=== PATIENT | male | born 1945 | race American Indian/Alaskan Native ===

== ENCOUNTER 2017-05-11 11:00 | Day surgery (SDC) | payer MEDICARE ==
[2017-05-11] MEDS ORDERED: XYLOCAINE MPF 2% ONE (12:00)
--- NOTE | 2017-05-11 12:19 | Anesthesia Consultation ---
Anesthesia Consult and Med Hx Date of service: 05/11/17 - Airway Anesthetic Teeth Evaluation: Good ROM Head & Neck: Adequate Mental/Hyoid Distance: Adequate Mallampati Class: Class II Intubation Access Assessment: Probably Good - Pre-Operative Health Status ASA Pre-Surgery Classification: ASA4 Proposed Anesthetic Plan: MAC - Cardiovascular System Hx Hypertension: Yes - Central Nervous System CVA: Yes (multiple strokes, aphasia) Hx Psychiatric Problems: Yes (Altered mental status with dementia) - Gastrointestinal Hx Gastroesophageal Reflux Disease: Yes (PEG tube in place) - Endocrine Hx Renal Disease: Yes (jose) Hx Non-Insulin Dependent Diabetes: Yes - Hematic Hx Anemia: Yes (BLOOD [place] [id number])
[2017-05-11] MEDS ORDERED: DIPRIVAN 10 MG/ML IV ONE (12:53)
[2017-05-11] MEDS ORDERED: NACL 0.9% 1000 ML 1,000 ML IV SCH (13:00)
--- NOTE | 2017-05-11 14:03 | History and Physical Report ---
HISTORY OF PRESENT ILLNESS: A 71-year-old gentleman with underlying history of diabetes, hypertension, cerebrovascular accident, poor swallowing function who normally receives nutrition through the PEG tube that has not been functioning well. The patient has been sent here for PEG revision. ALLERGIES: He has no known allergies. PHYSICAL EXAMINATION: VITAL SIGNS: His vitals otherwise are stable. NECK: Shows no JVD. LUNGS: Shows reduced breath sounds. CARDIOVASCULAR: Normal. ABDOMEN: Shows a nonfunctioning PEG tube. EXTREMITIES: No pedal edema. NEUROLOGIC: He is alert, but not oriented. ASSESSMENT: Nonfunctioning PEG tube, history of cerebrovascular accident, hypertension, diabetes, adult failure to thrive. PLAN: To do the PEG revision. JOB# [id number] LEIA/VERONICA
[2017-05-11 14:28] VITALS: BP 122/68
--- NOTE | 2017-05-11 15:21 | Post Anesthesia Evaluation ---
- Post Anesthesia Evaluation Patient Participated: Yes Airway Patent: Yes Stable Respiratory Function: Yes Nausea/Vomiting: No Temp > 96.8F: Yes Pain Manageable: Yes Adequeate Hydration: Yes Anesthesia Complications: No Block Receding Appropriately: Not Applicable Patient on Ventilator: No
--- NOTE | 2017-05-11 19:22 | Operative Report ---
PROCEDURE: Esophagogastroduodenoscopy with PEG revision. INDICATIONS: This is a 71-year-old -[place] gentleman with an underlying history of diabetes, hypertension, history of CVA with adult failure to thrive and poor swallowing function. He has a PEG tube that has not been functioning well. EGD was done for PEG revision. Procedure was done. DESCRIPTION OF PROCEDURE: After informed consent with MAC anesthesia instrument was passed to the hypopharynx into the esophagus, which showed normal mucosa. Stomach showed the PEG tube to be in place, but it appeared to be nonfunctioning. Pylorus was patent. Duodenum in the first and second portion appeared normal. Once endoscopic exam was done, the old stoma site was cleaned and draped in standard fashion. The tube was removed by gentle traction. Guidewire was passed through the stoma into the cavity of the stomach. A wire was passed through the hollow of the trocar, which was then caught with the polypectomy snare and brought out through the mouth. This was then tied to the 20-Maori tube, which was then pulled into place. The skin marking was at about 2 cm and the scope was reintroduced and the G-tube was noted to be in good position. There was minimal bleeding from the procedure. No complications associated with the procedure. ASSESSMENT: EGD with PEG revision, removal of the old PEG tube, which was nonfunctioning, history of cardiovascular accident with poor swallowing function and adult failure to thrive. Plan is to resume previous medication and feeding through the tube and to avoid aspirin and aspirin-related products and anticoagulants for 2 days if possible. [facility]# [id number] LEIA/VERONICA
== END 2017-05-11 11:01 | disposition home or self-care (01) ==
LOC: GIO 11:00
DX: K94.23 Gastrostomy malfunction (principal); E11.9 Type 2 diabetes mellitus without complications; I10 Essential (primary) hypertension; F03.90 Unspecified dementia, unspecified severity, without behavioral disturbance, psychotic disturbance, mood disturbance, and anxiety; K21.9 Gastro-esophageal reflux disease without esophagitis; D64.9 Anemia, unspecified; Z86.73 Personal history of transient ischemic attack (TIA), and cerebral infarction without residual deficits
CPT/HCPCS: 43246; J2704; J7030

== ENCOUNTER 2017-06-08 15:32 | Inpatient (IN) | payer MEDICARE ==
[2017-06-08] MEDS ORDERED: NACL 0.9% 500 ML 500 ML IV ONE (15:35)
[2017-06-08 16:11] LABS: Bilirubin,Urine NEG (Negative); Blood,Urine MOD (Negative); Ketones,Urine TR mg/dL (Negative); Leukocyte Esterase,Urine NEG (Negative); Mucus,Urine FEW /HPF; Nitrite,Urine NEG (Negative); Urobilinogen,Urine < 2.0 mg/dL (<2.0)
[2017-06-08] MEDS ORDERED: NACL 0.9% 1000 ML 1,000 ML IV ONE ×2 (16:16→16:56)
--- NOTE | 2017-06-08 16:17 | Emergency Department Report ---
ED Altered Mental Status HPI - General Chief Complaint: Altered Mental Status Stated Complaint: LOC Time Seen by Provider: 06/08/17 15:59 Source: EMS Mode of arrival: Stretcher Limitations: Altered Mental Status - History of Present Illness MD Complaint: altered mental status, decreased responsiveness -: Gradual, days(s) (1) Severity: severe Consistency of Symptoms: constant Context: recent fever Associated Symptoms: fever/chills, weakness - Related Data Home Medications Medication Instructions Recorded Confirmed Last Taken Aspirin [Aspirin TAB] 325 mg PO DAILY 03/10/14 03/10/14 05/10/17 Simvastatin 20 mg PO QHS 03/10/14 03/10/14 05/10/17 amLODIPine [Norvasc] 10 mg PO DAILY 03/10/14 03/10/14 05/10/17 metFORMIN [Glucophage] 500 mg PO BID 03/10/14 03/10/14 05/10/17 Previous Rx's Medication Instructions Recorded Last Taken Type Acetaminophen [Acetaminophen TAB] 650 mg PO Q4H PRN #20 tablet 03/21/14 Unknown Rx Allergies Allergy/AdvReac Type Severity Reaction Status Date / Time No Known Allergies Allergy Unverified 03/10/14 23:36 ED Review of Systems ROS: Stated complaint: LOC Other details as noted in HPI Comment: Unobtainable due to pts medical conditions Constitutional: no symptoms reported ED Past Medical Hx - Past Medical History Hx Hypertension: Yes Hx CVA: Yes Hx Diabetes: Yes Hx Renal Disease: Yes (jose) Additional medical history: metabolic encephalopathy - Surgical History Past Surgical History?: Yes - Social History Smoking Status: Unknown if ever smoked Substance Use Type: None - Medications Home Medications: Home Medications Medication Instructions Recorded Confirmed Last Taken Type Aspirin [Aspirin TAB] 325 mg PO DAILY 03/10/14 03/10/14 05/10/17 History Simvastatin 20 mg PO QHS 03/10/14 03/10/14 05/10/17 History amLODIPine [Norvasc] 10 mg PO DAILY 03/10/14 03/10/14 05/10/17 History metFORMIN [Glucophage] 500 mg PO BID 03/10/14 03/10/14 05/10/17 History Acetaminophen [Acetaminophen TAB] 650 mg PO Q4H PRN #20 tablet 03/21/14 Unknown Rx ED Physical Exam - General Limitations: Altered Mental Status General appearance: in distress - Head Head exam: Present: atraumatic - Eye Eye exam: Present: normal appearance Pupils: Present: normal accommodation - ENT ENT exam: Present: normal exam - Neck Neck exam: Present: normal inspection - Respiratory Respiratory exam: Present: normal lung sounds bilaterally - Cardiovascular Cardiovascular Exam: Present: regular rate - GI/Abdominal GI/Abdominal exam: Present: soft - Skin Skin exam: Present: other (decubiti ulcers,) ED Course Vital Signs 06/08/17 06/08/17 06/08/17 15:29 15:30 15:33 Temperature 99.4 F Pulse Rate 117 H 118 H 111 H Respiratory 22 24 19 Rate Blood Pressure 156/77 O2 Sat by Pulse 97 97 97 Oximetry 06/08/17 06/08/17 06/08/17 15:35 15:37 15:45 Temperature Pulse Rate 118 H 120 H 114 H Respiratory 21 20 21 Rate Blood Pressure 139/74 139/74 149/69 O2 Sat by Pulse 98 98 97 Oximetry 06/08/17 06/08/17 15:52 16:00 Temperature Pulse Rate 112 H Respiratory 20 19 Rate Blood Pressure 143/71 O2 Sat by Pulse 98 87 Oximetry - Reevaluation(s) Reevaluation #1: 06/08/17 17:14 improved - Lab Data Result diagrams: 06/08/17 15:47 06/08/17 15:47 Lab Results 06/08/17 06/08/17 06/08/17 Range/Units 15:40 15:47 15:47 WBC 17.2 H (4.5-11.0) K/mm3 RBC 3.68 (3.65-5.03) M/mm3 Hgb 7.6 L (11.8-15.2) gm/dl Hct 25.7 L (35.5-45.6) % MCV 70 L (84-94) fl MCH 21 L (28-32) pg MCHC 30 L (32-34) % RDW 18.0 H (13.2-15.2) % Plt Count 342 (140-440) K/mm3 Lymph % (Auto) 9.6 L (13.4-35.0) % [place] % (Auto) 10.3 H (0.0-7.3) % Eos % (Auto) 0.0 (0.0-4.3) % Baso % (Auto) 0.5 (0.0-1.8) % Lymph # 1.7 (1.2-5.4) K/mm3 [place] # 1.8 H (0.0-0.8) K/mm3 Eos # 0.0 (0.0-0.4) K/mm3 Baso # 0.1 (0.0-0.1) K/mm3 Seg Neutrophils % 79.6 H (40.0-70.0) % Seg Neutrophils # 13.7 H (1.8-7.7) K/mm3 PT 21.3 H (12.2-14.9) Sec. INR 1.74 H (0.87-1.13) VBG pH (7.320-7.420) Sodium (137-145) mmol/L Potassium (3.6-5.0) mmol/L Chloride (98-107) mmol/L Carbon Dioxide (22-30) mmol/L Anion Gap mmol/L BUN (9-20) mg/dL Creatinine (0.8-1.5) mg/dL Estimated GFR ml/min BUN/Creatinine Ratio % Glucose (75-100) mg/dL POC Glucose 295 H (70-105) Lactic Acid (0.7-2.0) mmol/L Calcium (8.4-10.2) mg/dL Total Bilirubin (0.1-1.2) mg/dL AST (5-40) units/L ALT (7-56) units/L Alkaline Phosphatase (35-129) units/L Total Protein (6.3-8.2) g/dL Albumin (3.9-5) g/dL Albumin/Globulin Ratio % Urine Color (Yellow) Urine Turbidity (Clear) Urine pH (5.0-7.0) Ur Specific [place] (1.003-1.030) Urine Protein (Negative) mg/dL Urine Glucose (UA) (Negative) mg/dL Urine Ketones (Negative) mg/dL Urine Blood (Negative) Urine Nitrite (Negative) Urine Bilirubin (Negative) Urine Urobilinogen (<2.0) mg/dL Ur Leukocyte Esterase (Negative) Urine WBC (Auto) (0.0-6.0) /HPF Urine RBC (Auto) (0.0-6.0) /HPF U Epithel Cells (Auto) (0-13.0) /HPF Urine Mucus /HPF 07/12/17 07/12/17 07/12/17 Range/Units 15:47 15:47 15:47 WBC (4.5-11.0) K/mm3 RBC (3.65-5.03) M/mm3 Hgb (11.8-15.2) gm/dl Hct (35.5-45.6) % MCV (84-94) fl MCH (28-32) pg MCHC (32-34) % RDW (13.2-15.2) % Plt Count (140-440) K/mm3 Lymph % (Auto) (13.4-35.0) % [place] % (Auto) (0.0-7.3) % Eos % (Auto) (0.0-4.3) % Baso % (Auto) (0.0-1.8) % Lymph # (1.2-5.4) K/mm3 [place] # (0.0-0.8) K/mm3 Eos # (0.0-0.4) K/mm3 Baso # (0.0-0.1) K/mm3 Seg Neutrophils % (40.0-70.0) % Seg Neutrophils # (1.8-7.7) K/mm3 PT (12.2-14.9) Sec. INR (0.87-1.13) VBG pH 7.383 (7.320-7.420) Sodium 134 L (137-145) mmol/L Potassium 5.5 H (3.6-5.0) mmol/L Chloride 93.9 L (98-107) mmol/L Carbon Dioxide 21 L (22-30) mmol/L Anion Gap 25 mmol/L BUN 21 H (9-20) mg/dL Creatinine 0.7 L (0.8-1.5) mg/dL Estimated GFR > 60 ml/min BUN/Creatinine Ratio 30.00 % Glucose 253 H (75-100) mg/dL POC Glucose (70-105) Lactic Acid 4.50 H* (0.7-2.0) mmol/L Calcium 8.8 (8.4-10.2) mg/dL Total Bilirubin 0.50 (0.1-1.2) mg/dL AST 50 H (5-40) units/L ALT 15 (7-56) units/L Alkaline Phosphatase 71 (35-129) units/L Total Protein 8.4 H (6.3-8.2) g/dL Albumin 2.8 L (3.9-5) g/dL Albumin/Globulin Ratio 0.5 % Urine Color (Yellow) Urine Turbidity (Clear) Urine pH (5.0-7.0) Ur Specific [place] (1.003-1.030) Urine Protein (Negative) mg/dL Urine Glucose (UA) (Negative) mg/dL Urine Ketones (Negative) mg/dL Urine Blood (Negative) Urine Nitrite (Negative) Urine Bilirubin (Negative) Urine Urobilinogen (<2.0) mg/dL Ur Leukocyte Esterase (Negative) Urine WBC (Auto) (0.0-6.0) /HPF Urine RBC (Auto) (0.0-6.0) /HPF U Epithel Cells (Auto) (0-13.0) /HPF Urine Mucus /HPF // Range/Units 15:52 WBC (4.5-11.0) K/mm3 RBC (3.65-5.03) M/mm3 Hgb (11.8-15.2) gm/dl Hct (35.5-45.6) % MCV (84-94) fl MCH (28-32) pg MCHC (32-34) % RDW (13.2-15.2) % Plt Count (140-440) K/mm3 Lymph % (Auto) (13.4-35.0) % [place] % (Auto) (0.0-7.3) % Eos % (Auto) (0.0-4.3) % Baso % (Auto) (0.0-1.8) % Lymph # (1.2-5.4) K/mm3 [place] # (0.0-0.8) K/mm3 Eos # (0.0-0.4) K/mm3 Baso # (0.0-0.1) K/mm3 Seg Neutrophils % (40.0-70.0) % Seg Neutrophils # (1.8-7.7) K/mm3 PT (12.2-14.9) Sec. INR (0.87-1.13) VBG pH (7.320-7.420) Sodium (137-145) mmol/L Potassium (3.6-5.0) mmol/L Chloride (98-107) mmol/L Carbon Dioxide (22-30) mmol/L Anion Gap mmol/L BUN (9-20) mg/dL Creatinine (0.8-1.5) mg/dL Estimated GFR ml/min BUN/Creatinine Ratio % Glucose (75-100) mg/dL POC Glucose (70-105) Lactic Acid (0.7-2.0) mmol/L Calcium (8.4-10.2) mg/dL Total Bilirubin (0.1-1.2) mg/dL AST (5-40) units/L ALT (7-56) units/L Alkaline Phosphatase (35-129) units/L Total Protein (6.3-8.2) g/dL Albumin (3.9-5) g/dL Albumin/Globulin Ratio % Urine Color Yellow (Yellow) Urine Turbidity Clear (Clear) Urine pH 5.0 (5.0-7.0) Ur Specific [place] 1.014 (1.003-1.030) Urine Protein 100 mg/dl (Negative) mg/dL Urine Glucose (UA) 150 (Negative) mg/dL Urine Ketones Tr (Negative) mg/dL Urine Blood Mod (Negative) Urine Nitrite Neg (Negative) Urine Bilirubin Neg (Negative) Urine Urobilinogen < 2.0 (<2.0) mg/dL Ur Leukocyte Esterase Neg (Negative) Urine WBC (Auto) 3.0 (0.0-6.0) /HPF Urine RBC (Auto) 19.0 (0.0-6.0) /HPF U Epithel Cells (Auto) < 1.0 (0-13.0) /HPF Urine Mucus Few /HPF - EKG Data EKG shows normal: sinus rhythm Rate: normal Critical care time in (mins) excluding proc time.: 50 Critical care attestation.: If time is entered above; I have spent that time in minutes in the direct care of this critically ill patient, excluding procedure time. 50 Critical Care Time: 50 ED Disposition Clinical Impression: Acidosis, Dehydration Sepsis Qualifiers: Sepsis type: sepsis due to unspecified organism Qualified Code(s): A41.9 - Sepsis, unspecified organism Disposition: OP ADMIT IP TO THIS HOSP Is pt being admited?: Yes Does the pt Need Aspirin: No Condition: Undetermined Referrals: PRIMARY CARE, [Primary Care Provider] - 3-5 Days
[2017-06-08 16:27] LABS: Albumin 2.8 g/dL (3.9-5); Albumin/Globulin Ratio 0.5 %; Alkaline Phosphatase 71 units/L (35-129); Blood Urea Nitrogen 21 mg/dL (9-20); Calcium 8.8 mg/dL (8.4-10.2); Carbon Dioxide 21 mmol/L (22-30); Chloride 93.9 mmol/L (98-107); Glucose 253 mg/dL (75-100); Sodium 134 mmol/L (137-145); Total Protein 8.4 g/dL (6.3-8.2)
[2017-06-08] MEDS ORDERED: ZOSYN/NS 4.5GM/100ML 4.5 GM/100 ML VIAL IV ONE (16:28)
[2017-06-08 16:32] LABS: Alanine Aminotransferase 15 units/L (7-56); Anion Gap 25 mmol/L; Basophils % (Auto) 0.5 % (0.0-1.8); Hematocrit 25.7 % (35.5-45.6); Hemoglobin 7.6 gm/dl (11.8-15.2); Mean Corpuscular HGB Conc 30 % (32-34); Platelet Count 342 K/mm3 (140-440); Potassium 5.5 mmol/L (3.6-5.0); Red Blood Count 3.68 M/mm3 (3.65-5.03); White Blood Count 17.2 K/mm3 (4.5-11.0)
[2017-06-08 16:34] LABS: Mean Corpuscular Hemoglobin 21 pg (28-32); Mean Corpuscular Volume 70 fl (84-94)
[2017-06-08 16:43] LABS: INR 1.74 (0.87-1.13)
--- NOTE | 2017-06-08 17:35 | Cat Scan Report ---
FINAL REPORT PROCEDURE: CT HEAD/BRAIN WO CON TECHNIQUE: Computerized tomography of the head was performed without contrast material. HISTORY: ams COMPARISON: No prior studies are available for comparison. FINDINGS: Skull and scalp: Possible mild scalp swelling left temporal parietal area Paranasal sinuses: Fluid and thickening in the right posterior sphenoid. Ventricles and subarachnoid spaces: Moderately enlarged ventricles likely in proportion to volume loss related to diffuse atrophy. Cerebrum: No acute intracranial bleed. There is questionable gyral thickening and indistinct nguyen-white junctions in the right temporal parietal brain asymmetric from left side images 39 through 41 and right frontal brain 30 through 33. These areas may reflect ischemia of indeterminate age. Consider MRI to further evaluate. No prior CT head on file. Cerebellum and brainstem: No evidence of hemorrhage, acute infarction or mass. Vasculature: Heavily calcified atherosclerosis with dominant left vertebral artery with moderate stenosis suspected.. Findings suggest increased risk for possible vertebrobasilar insufficiency. CTA head neck may be useful to evaluate that potential if warranted. Comments: Moderate diffuse atrophy with moderate to severe low attenuation pattern in the deep white matter consistent with severe chronic periventricular microischemic change with central lacunar infarct disease. Focal encephalomalacic change in the right pontine area appears chronic. IMPRESSION: No acute intracranial bleed. Diffuse chronic periventricular microischemic change and central basal ganglia lacunar infarct disease with focal right pontine encephalomalacia Indeterminate for areas of acute ischemia in the right temporal parietal brain and right frontal brain as described. No prior CT head on file for correlation Followup MRI with [facility] is advised if not contraindicated
--- NOTE | 2017-06-08 23:54 | History and Physical Report ---
History of Present Illness Date of examination: 06/08/17 Date of admission: 06/08/17 16:57 Chief complaint: Altered mental status for 1 vday History of present illness: DOUGLAS:Patient was sent from PMD's office for multiple wounds to sacral region and feet and decreased responsiveness.Patient has been running fever sec to Sacral wounds.ALso altered sensorium.NO family member available to give further information.In summary patient has fever decub ulcers and altered sens - Past Medical History Hx Hypertension: Yes Hx CVA: Yes Hx Diabetes: Yes Hx Renal Disease: Yes (jose) Additional medical history: metabolic encephalopathy - Surgical History Past Surgical History?: J tube - Social History Smoking Status: Unknown if ever smoked Substance Use Type: None - Medications Home Medications: Home Medications Medication Instructions Recorded Confirmed Last Taken Type Aspirin [Aspirin TAB] 325 mg PO DAILY 03/10/14 03/10/14 05/10/17 History Simvastatin 20 mg PO QHS 03/10/14 03/10/14 05/10/17 History amLODIPine [Norvasc] 10 mg PO DAILY 03/10/14 03/10/14 05/10/17 History metFORMIN [Glucophage] 500 mg PO BID 03/10/14 03/10/14 05/10/17 History Acetaminophen [Acetaminophen TAB] 650 mg PO Q4H PRN #20 tablet 03/21/14 Unknown Rx Allergies Allergy/AdvReac Type Severity Reaction Status Date / Time No Known Allergies Allergy Unverified 03/10/14 23:36 ED Review of Systems ROS: Stated complaint: LOC Other details as noted in HPI Comment: Unobtainable due to pts medical conditions Constitutional: no symptoms reported Medications and Allergies Allergies Allergy/AdvReac Type Severity Reaction Status Date / Time No Known Allergies Allergy Unverified 03/10/14 23:36 Home Medications Medication Instructions Recorded Confirmed Last Taken Type Aspirin [Aspirin TAB] 325 mg PO DAILY 03/10/14 03/10/14 05/10/17 History Simvastatin 20 mg PO QHS 03/10/14 03/10/14 05/10/17 History amLODIPine [Norvasc] 10 mg PO DAILY 03/10/14 03/10/14 05/10/17 History metFORMIN [Glucophage] 500 mg PO BID 03/10/14 03/10/14 05/10/17 History Acetaminophen [Acetaminophen TAB] 650 mg PO Q4H PRN #20 tablet 03/21/14 Unknown Rx Exam - Physical Exam Narrative exam: Lying in bed with decreased responsiveness.Alert to surroundings - Constitutional Vitals: Temp Pulse Resp BP Pulse Ox 98.8 F 130 H 20 170/85 100 06/08/17 21:25 06/08/17 21:25 06/08/17 21:25 06/08/17 21:25 06/08/17 21:25 General appearance: Present: no acute distress, well-nourished - EENT Eyes: Present: PERRL ENT: hearing intact, clear oral mucosa - Neck Neck: Present: supple, normal ROM - Respiratory Respiratory effort: normal Respiratory: bilateral: CTA - Cardiovascular Heart rate: 113 Rhythm: regular Heart Sounds: Present: S1 & S2. Absent: rub, click - Extremities Extremities: pulses symmetrical, No edema Extremity abnormal: ulceration (Both feet and gluteal region) Peripheral Pulses: within normal limits - Abdominal General gastrointestinal: Present: soft, non-tender, non-distended, normal bowel sounds, other (tube in place) Male genitourinary: Present: normal - Integumentary Integumentary: Present: clear, warm, dry - Musculoskeletal Musculoskeletal: gait normal, strength equal bilaterally - Psychiatric Psychiatric: appropriate mood/affect, intact judgment & insight - Neurologic Neurologic: CNII-XII intact, moves all extremities - Allied Health Allied health notes reviewed: case management Results - Labs CBC & Chem 7: 06/08/17 15:47 06/08/17 15:47 Labs: Laboratory Last Values WBC 17.2 K/mm3 (4.5-11.0) H 06/08/17 15:47 RBC 3.68 M/mm3 (3.65-5.03) 06/08/17 15:47 Hgb 7.6 gm/dl (11.8-15.2) L 06/08/17 15:47 Hct 25.7 % (35.5-45.6) L 06/08/17 15:47 MCV 70 fl (84-94) L 06/08/17 15:47 MCH 21 pg (28-32) L 06/08/17 15:47 MCHC 30 % (32-34) L 06/08/17 15:47 RDW 18.0 % (13.2-15.2) H 06/08/17 15:47 Plt Count 342 K/mm3 (140-440) 06/08/17 15:47 Lymph % (Auto) 9.6 % (13.4-35.0) L 06/08/17 15:47 [place] % (Auto) 10.3 % (0.0-7.3) H 06/08/17 15:47 Eos % (Auto) 0.0 % (0.0-4.3) 06/08/17 15:47 Baso % (Auto) 0.5 % (0.0-1.8) 06/08/17 15:47 Lymph # 1.7 K/mm3 (1.2-5.4) 06/08/17 15:47 [place] # 1.8 K/mm3 (0.0-0.8) H 06/08/17 15:47 Eos # 0.0 K/mm3 (0.0-0.4) 06/08/17 15:47 Baso # 0.1 K/mm3 (0.0-0.1) 06/08/17 15:47 Seg Neutrophils % 79.6 % (40.0-70.0) H 06/08/17 15:47 Seg Neutrophils # 13.7 K/mm3 (1.8-7.7) H 06/08/17 15:47 PT 21.3 Sec. (12.2-14.9) H 06/08/17 15:47 INR 1.74 (0.87-1.13) H 06/08/17 15:47 VBG pH 7.383 (7.320-7.420) 06/08/17 15:47 Sodium 134 mmol/L (137-145) L 06/08/17 15:47 Potassium 5.5 mmol/L (3.6-5.0) H 06/08/17 15:47 Chloride 93.9 mmol/L (98-107) L 06/08/17 15:47 Carbon Dioxide 21 mmol/L (22-30) L 06/08/17 15:47 Anion Gap 25 mmol/L 06/08/17 15:47 BUN 21 mg/dL (9-20) H 06/08/17 15:47 Creatinine 0.7 mg/dL (0.8-1.5) L 06/08/17 15:47 Estimated GFR > 60 ml/min 06/08/17 15:47 BUN/Creatinine Ratio 30.00 % 06/08/17 15:47 Glucose 253 mg/dL (75-100) H 06/08/17 15:47 POC Glucose 295 (70-105) H 06/08/17 15:40 Lactic Acid 4.60 mmol/L (0.7-2.0) H* 06/08/17 18:33 Calcium 8.8 mg/dL (8.4-10.2) 06/08/17 15:47 Total Bilirubin 0.50 mg/dL (0.1-1.2) 06/08/17 15:47 AST 50 units/L (5-40) H 06/08/17 15:47 ALT 15 units/L (7-56) 06/08/17 15:47 Alkaline Phosphatase 71 units/L (35-129) 06/08/17 15:47 Total Protein 8.4 g/dL (6.3-8.2) H 06/08/17 15:47 Albumin 2.8 g/dL (3.9-5) L 06/08/17 15:47 Albumin/Globulin Ratio 0.5 % 06/08/17 15:47 Urine Color Yellow (Yellow) 06/08/17 15:52 Urine Turbidity Clear (Clear) 06/08/17 15:52 Urine pH 5.0 (5.0-7.0) 06/08/17 15:52 Ur Specific [place] 1.014 (1.003-1.030) 06/08/17 15:52 Urine Protein 100 mg/dl mg/dL (Negative) 06/08/17 15:52 Urine Glucose (UA) 150 mg/dL (Negative) 06/08/17 15:52 Urine Ketones Tr mg/dL (Negative) 06/08/17 15:52 Urine Blood Mod (Negative) 06/08/17 15:52 Urine Nitrite Neg (Negative) 06/08/17 15:52 Urine Bilirubin Neg (Negative) 06/08/17 15:52 Urine Urobilinogen < 2.0 mg/dL (<2.0) 06/08/17 15:52 Ur Leukocyte Esterase Neg (Negative) 06/08/17 15:52 Urine WBC (Auto) 3.0 /HPF (0.0-6.0) 06/08/17 15:52 Urine RBC (Auto) 19.0 /HPF (0.0-6.0) 06/08/17 15:52 U Epithel Cells (Auto) < 1.0 /HPF (0-13.0) 06/08/17 15:52 Urine Mucus Few /HPF 06/08/17 15:52 Assessment and Plan Advance Directives: Yes (Full code) VTE prophylaxis?: Chemical Plan of care discussed with patient/family: No - Patient Problems (1) Sepsis Current Visit: Yes Status: Acute Qualifiers: Sepsis type: sepsis due to unspecified organism Qualified Code(s): A41.9 - Sepsis, unspecified organism Plan to address problem: Sec to decub ulcers.Started on Vancomycin and Zosyn pending Blood cultures and wound cultures.Lactic acid high. (2) Toxic metabolic encephalopathy Current Visit: Yes Status: Acute Plan to address problem: Sec to sepsis old CVA and multifactorial.Also metabolic acidosis. (3) Acidosis, metabolic Current Visit: No Status: Acute Plan to address problem: Iv fluids and Iv abx (4) Hyperkalemia Current Visit: Yes Status: Acute Plan to address problem: Nahco3 and calcium gluconate given.Recheck K level (5) CVA, old, cognitive deficits Current Visit: No Status: Chronic (6) Malnutrition Current Visit: Yes Status: Acute Plan to address problem: Dietitian consult requested for supplements and Tube feeding orders (7) T2DM (type 2 diabetes mellitus) Current Visit: Yes Status: Chronic Qualifiers: Diabetes mellitus complication status: with neurologic complications Diabetes mellitus complication detail: D Diabetic retinopathy severity: D Proliferative retinopathy type: P Diabetes mellitus macular edema: D Diabetes mellitus mcc insulin use: D Laterality: L Chronic kidney disease stage: C Plan to address problem: Coverage and check A1c.Metfotmin stopped b/c of Lactic Acidosis. (8) T2DM (type 2 diabetes mellitus) Current Visit: Yes Status: Acute Qualifiers: Diabetes mellitus complication status: D Diabetes mellitus complication detail: D Diabetic retinopathy severity: D Proliferative retinopathy type: P Diabetes mellitus macular edema: D Diabetes mellitus oracle endeca consultant insulin use : D Laterality: L Chronic kidney disease stage: C (9) HLD (hyperlipidemia) Current Visit: Yes Status: Chronic Qualifiers: Hyperlipidemia type: mixed hyperlipidemia Qualified Code(s): E78.2 - Mixed hyperlipidemia Plan to address problem: Statins held for the time being. (10) DVT prophylaxis Current Visit: No Status: Acute Plan to address problem: On Lovenox
[2017-06-09] MEDS ORDERED: DULCOLAX PR PRN (00:03)
[2017-06-09] MEDS ORDERED: MILK OF MAGNESIA PO PRN (00:03)
[2017-06-09] MEDS ORDERED: ZOFRAN IV PRN (00:03)
[2017-06-09] MEDS: D5/0.45NS 1,000 ML IV SCH (03:24)
[2017-06-09] MEDS: ZOSYN/NS 4.5GM/100ML 4.5 GM/100 ML VIAL IV SCH ×3 (03:24→17:27)
[2017-06-09] MEDS ORDERED: CALCIUM GLUCONATE 1,000 MG in NACL 0.9% 100 ML IV ONE (05:39)
[2017-06-09] MEDS: TYLENOL PR PRN (05:40)
[2017-06-09] MEDS ORDERED: SODIUM BICARBONATE IV ONE (05:45)
[2017-06-09] MEDS ORDERED: VANCOMYCIN 1,250 MG in NACL 0.9% 250ML 250 ML IV ONE (06:00)
[2017-06-09] MEDS ORDERED: SODIUM BICARBONATE 50 MEQ in NACL 0.9% 1000 ML 1,000 ML IV SCH (06:00)
[2017-06-09] MEDS ORDERED: VANCOMYCIN PHARMACY TO DOSE IV SCH (06:00)
[2017-06-09 06:50] LABS: Anion Gap 20 mmol/L; BUN/Creatinine Ratio 22.85; Blood Urea Nitrogen 16 mg/dL (9-20); Calcium 8.1 mg/dL (8.4-10.2); Carbon Dioxide 22 mmol/L (22-30); Chloride 100.2 mmol/L (98-107); Glucose 226 mg/dL (75-100); Potassium 3.4 mmol/L (3.6-5.0); Sodium 139 mmol/L (137-145)
[2017-06-09 06:53] LABS: Total Iron Binding Capacity 141.4 mcg/dL (250-450)
--- NOTE | 2017-06-09 08:01 | XRay Report ---
AP CHEST: HISTORY: Sepsis AP view of the chest demonstrates a normal mediastinal and cardiac contour with clear lungs and normal bony and soft tissue structures. IMPRESSION: Unremarkable AP chest.
[2017-06-09] MEDS: PEPCID IV SCH ×2 (12:02→23:14)
[2017-06-09] MEDS: NORVASC PO SCH (12:05)
--- NOTE | 2017-06-09 14:55 | Admit Criteria Form ---
Admission Criteria Documentation: SEPSIS and OTHER FEBRILE ILLNESS, W/O FOCAL INFECTION Clinical Indications for Admission to Inpatient Care ( Place 'X' for any and all applicable criteria): Admission is indicated for ANY ONE of the following (1)(2)(3)(4): [ ] I. Bacteremia [ ]II. Suspected or identified specific infection requiring hospitalization (eg, meningitis, endocarditis) [ ]III. Hemodynamic instability [ ]IV. Altered mental status [ ]V. Failure or unavailability of outpatient antimicrobial treatment [ ]. Hypoxemia [ ]VII. Seizures [ ]VIII. High-risk febrile neutropenia [ ]IX. Need for parenteral antibiotic in patient who is likely to abuse vascular access device (eg, injection drug user) [A](7) [ ]X. Temperature greater than 104.9 degrees F (40.5 degrees C) (oral) [ X]XI. Inpatient admission required rather than observation care because of ANY ONE of the following: [ ]1) Specific infection identified that is too severe for outpatient treatment or observation care trial [ X]2) Metabolic disorder (eg, hypoglycemia, hyperglycemia, metabolic acidosis) that is severe or persistent [ ]3) Temperature greater than 103.1 degrees F (39.5 degrees C) ( oral) that is not responsive to observation care treatment [ ]4) IV fluid to replace significant ongoing (eg, for over 24 hours) losses (> 3 L/m2 per day) [ ]5) Supplemental oxygen or respiratory treatments for over 24 hours that is performable only in acute inpatient setting [ ]6) Parenteral nutrition regimen need that must be implemented on inpatient basis [ ]7) Strict or protective (eg, laminar flow) isolation [ ]8) Other condition, treatment or monitoring requiring inpatient admission Extended stay beyond goal length of stay may be needed for(1)(3) [ ]a) Sepsis or septic shock(22) [ ]b) Positive blood cultures [ ]c) Insufficient oral intake [ ]d) High-risk febrile neutropenia(29)(30) [ ]e) Continued fever and clinical instability [ ]f) Clinically active comorbid illness (e.g,heart failure, renal failure , diabetes) The original [facility] [employer] content created by Peewee Garcia has been revised. The portions of the content which have been revised are identified through the use of italic text or in bold, and Peewee Garcia has neither reviewed nor approved the modified material. All other unmodified content is copyright [facility]. Please see references footnoted in the original [facility] edition 2016 Admission Criteria Met: Yes
--- NOTE | 2017-06-09 16:40 | Anesthesia Day of Surgery ---
Anesthesia Day of Surgery - Day of Surgery Patient Examined: Yes Patient H&P Reviewed: Yes Patient is NPO: Yes
--- NOTE | 2017-06-09 16:40 | Anesthesia Consultation ---
Anesthesia Consult and Med Hx Date of service: 06/09/17 - Airway Intubation Access Assessment: Probably Good - Pulmonary Exam CTA: Yes - Cardiac Exam Cardiac Exam: RRR - Pre-Operative Health Status ASA Pre-Surgery Classification: ASA4 Proposed Anesthetic Plan: General - Cardiovascular System Hx Hypertension: Yes - Central Nervous System CVA: Yes (multiple strokes, aphasia) Hx Psychiatric Problems: Yes (Altered mental status with dementia) - Gastrointestinal Hx Gastroesophageal Reflux Disease: Yes (PEG tube in place) - Endocrine Hx Renal Disease: Yes (jose) Hx Non-Insulin Dependent Diabetes: Yes - Hematic Hx Anemia: Yes (BLOOD [place] [id number])
--- NOTE | 2017-06-09 16:41 | History and Physical Report ---
History of Present Illness Date of examination: 06/09/17 Date of admission: 06/08/17 16:57 Chief complaint: Left heel pressure ulcer History of present illness: 71 yo male, s/p CVA with pressure ulcers of the right heel and right hip. Consulted re: wound management Past History Past Medical History: diabetes, hypertension, hyperlipidemia, stroke Family history: no significant family history Medications and Allergies Allergies Allergy/AdvReac Type Severity Reaction Status Date / Time No Known Allergies Allergy Unverified 03/10/14 23:36 Home Medications Medication Instructions Recorded Confirmed Last Taken Type Aspirin [Aspirin TAB] 325 mg PO DAILY 03/10/14 06/09/17 2 Days Ago History Simvastatin 20 mg PO QHS 03/10/14 06/09/17 2 Days Ago History amLODIPine [Norvasc] 10 mg PO DAILY 03/10/14 06/09/17 2 Days Ago History metFORMIN [Glucophage] 500 mg PO BID 03/10/14 06/09/17 2 Days Ago History Acetaminophen [Acetaminophen TAB] 650 mg PO Q4H PRN #20 tablet 03/21/14 3 Days Ago Rx Active Meds: Active Medications Acetaminophen (Tylenol) 650 mg LA Q4H PRN PRN Reason: Pain MILD(1-3)/Fever >100.5/MONGE Last Admin: 06/09/17 05:40 Dose: 650 mg Amlodipine Besylate (Norvasc) 10 mg PO DAILY [facility] Last Admin: 06/09/17 12:05 Dose: Not Given Bisacodyl (Dulcolax) 10 mg LA QDAY PRN PRN Reason: Constipation unrelieved by MOM Famotidine (Pepcid) 20 mg IV BID [facility] Last Admin: 06/09/17 12:02 Dose: 20 mg Hydromorphone HCl (Dilaudid) 0.5 mg IV Q3H PRN PRN Reason: Pain , Severe (7-10) Dextrose/Sodium Chloride (D5/0.45ns) 1,000 mls @ 75 mls/hr IV DIRECT [facility] Last Admin: 06/09/17 03:24 Dose: 75 mls/hr Piperacillin Sod/Tazobactam Sod (Zosyn/Ns 4.5gm/100ml) 4.5 gm in 100 mls @ 200 mls/hr IV Q8H [facility] PRN Reason: Protocol Last Admin: 06/09/17 12:04 Dose: 200 mls/hr Vancomycin HCl (Vancomycin/Ns 1 Gm/250 Ml) 1 gm in 250 mls @ 166.667 mls/hr IV Q12H [facility] Insulin Human Regular (Novolin R) 0 units SUB-Q Q6HR [facility] PRN Reason: Protocol Last Admin: 06/09/17 06:30 Dose: 4 units Magnesium Hydroxide (Milk Of Magnesia) 30 ml PO Q4H PRN PRN Reason: Constipation Ondansetron HCl (Zofran) 4 mg IV Q8H PRN PRN Reason: N/V unrelieved by Reglan Vancomycin HCl (Vancomycin Pharmacy To Dose) 1 each IV PKCONSULT ROSA PRN Reason: Protocol Review of Systems All systems: negative (none.) Exam Vital Signs Pulse Resp Pulse Ox 117 H 22 97 06/08/17 15:29 06/08/17 15:29 06/08/17 15:29 - General physical appearance Positive: no distress (Lying on side with right side up. Non-communicative.) - Eyes Positive: PERRL, normal occular movement - ENT Positive: normal pinna, normal nares, normal mucosa, no congestion - Neck Positive: no masses - Respiratory Positive: clear to auscultation - Cardiovascular Rhythm: regular Heart Sounds: Present: S1 & S2 - Abdomen Abdomen: Present: soft, bowel sounds normal Hernia: none - Integumentary other (There is a 2.5 cm right lateral hip ulceration extending at least to the SQ tissue with some undermining. There is a large, black eschar of the right heel with underlying fluctuance. There are also two 1.5 cm ulcers along the right lateral foot.) - Neurologic Neurologic: other (Non-communicative; moans occasionally.) Results - Labs 06/08/17 15:47 06/09/17 05:54 Abnormal lab results 06/08/17 06/09/17 06/09/17 Range/Units 18:33 05:54 05:54 Potassium 3.4 L D (3.6-5.0) mmol/L Creatinine 0.7 L (0.8-1.5) mg/dL Glucose 226 H (75-100) mg/dL POC Glucose (70-105) Lactic Acid 4.60 H* (0.7-2.0) mmol/L Calcium 8.1 L (8.4-10.2) mg/dL Iron 9 L (49-181) ug/dL TIBC 141.40 L (250-450) mcg/dL Transferrin 101 L (180-329) mg/dl 06/09/17 06/09/17 Range/Units 06:14 12:47 Potassium (3.6-5.0) mmol/L Creatinine (0.8-1.5) mg/dL Glucose (75-100) mg/dL POC Glucose 267 H 153 H (70-105) Lactic Acid (0.7-2.0) mmol/L Calcium (8.4-10.2) mg/dL Iron (49-181) ug/dL TIBC (250-450) mcg/dL Transferrin (180-329) mg/dl Diabetes panel 06/09/17 Range/Units 05:54 Sodium 139 (137-145) mmol/L Potassium 3.4 L D (3.6-5.0) mmol/L Chloride 100.2 (98-107) mmol/L Carbon Dioxide 22 (22-30) mmol/L BUN 16 (9-20) mg/dL Creatinine 0.7 L (0.8-1.5) mg/dL Glucose 226 H (75-100) mg/dL Calcium 8.1 L (8.4-10.2) mg/dL Calcium panel 06/09/17 Range/Units 05:54 Calcium 8.1 L (8.4-10.2) mg/dL Pituitary panel 06/09/17 Range/Units 05:54 Sodium 139 (137-145) mmol/L Potassium 3.4 L D (3.6-5.0) mmol/L Chloride 100.2 (98-107) mmol/L Carbon Dioxide 22 (22-30) mmol/L BUN 16 (9-20) mg/dL Creatinine 0.7 L (0.8-1.5) mg/dL Glucose 226 H (75-100) mg/dL Calcium 8.1 L (8.4-10.2) mg/dL Adrenal panel 06/09/17 Range/Units 05:54 Sodium 139 (137-145) mmol/L Potassium 3.4 L D (3.6-5.0) mmol/L Chloride 100.2 (98-107) mmol/L Carbon Dioxide 22 (22-30) mmol/L BUN 16 (9-20) mg/dL Creatinine 0.7 L (0.8-1.5) mg/dL Glucose 226 H (75-100) mg/dL Calcium 8.1 L (8.4-10.2) mg/dL Assessment and Plan - Patient Problems (1) Pressure ulcer, heel, right, unstageable Current Visit: Yes Status: Acute Plan to address problem: 1) We will take the pt to the OR today for debridement of his right heel, right hip and right foot ulcerations. Verbal informed consent was obtained from the pt's son, Royal. 2) Check arterial dopplers of his RLE as the right heel ulceration likely extends to bone 3) Strict DM control (2) Pressure ulcer, hip, right, unstageable Current Visit: Yes Status: Acute (3) Pressure ulcer of right foot, unstageable Current Visit: Yes Status: Acute
--- NOTE | 2017-06-09 16:55 | Progress Note ---
Assessment and Plan Assessment and plan: Patient [age] male was sent from PMD's office for multiple wounds to sacral region and feet and decreased responsiveness. Patient has been running fever likely sec to Sacral wounds. ALso altered sensorium. NO family member available to give further information.call was placed has not been responded to. Patient was started on empiric antibiotic coverage with consultation to surgery. Imaging studies of the brain did show possible intermediate infarcts with a recommendation for MRI which as been ordered. It is unclear if this is new. Patient does have also evidence of encephalomalacia. (1) Sepsis Sec to decub ulcers.continue Vancomycin and Zosyn pending Blood cultures and wound cultures.Lactic acid high. Repeat has normalized. Patient for surgical debridement. (2) Toxic metabolic encephalopathy Doubts new CVA but will obtain MRI. If continued worsening or evidence of acute events will obtain neurology evaluation and full CVA panel workup. (3) Acidosis, metabolic Continue treatment of underlying issue Iv fluids and Iv abx (4) Hyperkalemia Corrected hypo-kalemia will replace. (5) sacral pressure ulcers Surgical consult place patient for debridement today. Would care consult T (6) CVA, old, cognitive deficits Current Visit: No Status: Chronic Patient nonambulatory, severely debilitated (7) Malnutrition Dietitian consult requested for supplements and Tube feeding orders (8) T2DM (type 2 diabetes mellitus) Coverage with insulin and Accu-Cheks. Patient on D5ns due to nutrition. We'll adjust insulin accordingly. Metfotmin stopped b/c of Lactic Acidosis. (9) complete immobility due to frailty We'll obtain PT and OT evaluation and treat. (10) HLD (hyperlipidemia) we'll resume statins prior to discharge (11) DVT prophylaxis Current Visit: No Status: Acute Plan to address problem: On Lovenox History Interval history: Patient seen and examined this morning in no acute distress should he is severely contracted although answers some questions. No other adverse events reported by nursing staff. Hospitalist Physical - Physical exam Narrative exam: VITAL SIGNS: Reviewed. GENERAL: The patient appeared markedly cachectic severely contracted. Lying on the right side Vital signs as documented. HEAD: No signs of head trauma. EYES: Pupils are equal. Extraocular motions intact. EARS: Hearing grossly intact. MOUTH: Oropharynx is normal. NECK: No adenopathy, no JVD. CHEST: Chest with clear breath sounds bilaterally. No wheezes, rales, or rhonchi. CARDIAC: Regular rate and rhythm. S1 and S2, without murmurs, gallops, or rubs. VASCULAR: No Edema. Peripheral pulses normal and equal in all extremities. ABDOMEN: Soft, without detectable tenderness. No sign of distention. No rebound or guarding, and no masses palpated. Bowel Sounds normal. MUSCULOSKELETAL: Severely contracted. Extremities without clubbing, cyanosis or edema. NEUROLOGIC EXAM: Alert and oriented x 3. No focal sensory or strength deficits. Minimally communicative.. Follows commands. PSYCHIATRIC: Mood normal. SKIN: There is a 2.5 cm right lateral hip ulceration extending at least to the SQ tissue with some undermining. There is a large, black eschar of the right heel with underlying fluctuance, two 1.5 cm ulcers along the right lateral foot. - Constitutional Vitals: Temp Pulse Resp BP Pulse Ox 98.7 F 107 H 18 115/59 99 06/09/17 08:35 06/09/17 14:00 06/09/17 08:35 06/09/17 08:35 06/09/17 08:35 General appearance: Present: no acute distress, well-nourished Results - Labs CBC & Chem 7: 06/08/17 15:47 06/09/17 05:54 Labs: Laboratory Last Values WBC 17.2 K/mm3 (4.5-11.0) H 06/08/17 15:47 RBC 3.68 M/mm3 (3.65-5.03) 06/08/17 15:47 Hgb 7.6 gm/dl (11.8-15.2) L 06/08/17 15:47 Hct 25.7 % (35.5-45.6) L 06/08/17 15:47 MCV 70 fl (84-94) L 06/08/17 15:47 MCH 21 pg (28-32) L 06/08/17 15:47 MCHC 30 % (32-34) L 06/08/17 15:47 RDW 18.0 % (13.2-15.2) H 06/08/17 15:47 Plt Count 342 K/mm3 (140-440) 06/08/17 15:47 Lymph % (Auto) 9.6 % (13.4-35.0) L 06/08/17 15:47 [place] % (Auto) 10.3 % (0.0-7.3) H 06/08/17 15:47 Eos % (Auto) 0.0 % (0.0-4.3) 06/08/17 15:47 Baso % (Auto) 0.5 % (0.0-1.8) 06/08/17 15:47 Lymph # 1.7 K/mm3 (1.2-5.4) 06/08/17 15:47 [place] # 1.8 K/mm3 (0.0-0.8) H 06/08/17 15:47 Eos # 0.0 K/mm3 (0.0-0.4) 06/08/17 15:47 Baso # 0.1 K/mm3 (0.0-0.1) 06/08/17 15:47 Seg Neutrophils % 79.6 % (40.0-70.0) H 06/08/17 15:47 Seg Neutrophils # 13.7 K/mm3 (1.8-7.7) H 06/08/17 15:47 PT 21.3 Sec. (12.2-14.9) H 06/08/17 15:47 INR 1.74 (0.87-1.13) H 06/08/17 15:47 VBG pH 7.383 (7.320-7.420) 06/08/17 15:47 Sodium 139 mmol/L (137-145) 06/09/17 05:54 Potassium 3.4 mmol/L (3.6-5.0) L D 06/09/17 05:54 Chloride 100.2 mmol/L (98-107) 06/09/17 05:54 Carbon Dioxide 22 mmol/L (22-30) 06/09/17 05:54 Anion Gap 20 mmol/L 06/09/17 05:54 BUN 16 mg/dL (9-20) 06/09/17 05:54 Creatinine 0.7 mg/dL (0.8-1.5) L 06/09/17 05:54 Estimated GFR > 60 ml/min 06/09/17 05:54 BUN/Creatinine Ratio 22.85 % 06/09/17 05:54 Glucose 226 mg/dL (75-100) H 06/09/17 05:54 POC Glucose 153 (70-105) H 06/09/17 12:47 Lactic Acid 1.30 mmol/L (0.7-2.0) 06/09/17 05:54 Calcium 8.1 mg/dL (8.4-10.2) L 06/09/17 05:54 Iron 9 ug/dL (49-181) L 06/09/17 05:54 TIBC 141.40 mcg/dL (250-450) L 06/09/17 05:54 % Saturation 6.36 % 06/09/17 05:54 Transferrin 101 mg/dl (180-329) L 06/09/17 05:54 Total Bilirubin 0.50 mg/dL (0.1-1.2) 06/08/17 15:47 AST 50 units/L (5-40) H 06/08/17 15:47 ALT 15 units/L (7-56) 06/08/17 15:47 Alkaline Phosphatase 71 units/L (35-129) 06/08/17 15:47 Total Protein 8.4 g/dL (6.3-8.2) H 06/08/17 15:47 Albumin 2.8 g/dL (3.9-5) L 06/08/17 15:47 Albumin/Globulin Ratio 0.5 % 06/08/17 15:47 Vitamin B12 280.5 pg/mL (211-911) 06/09/17 05:54 Urine Color Yellow (Yellow) 06/08/17 15:52 Urine Turbidity Clear (Clear) 06/08/17 15:52 Urine pH 5.0 (5.0-7.0) 06/08/17 15:52 Ur Specific [place] 1.014 (1.003-1.030) 06/08/17 15:52 Urine Protein 100 mg/dl mg/dL (Negative) 06/08/17 15:52 Urine Glucose (UA) 150 mg/dL (Negative) 06/08/17 15:52 Urine Ketones Tr mg/dL (Negative) 06/08/17 15:52 Urine Blood Mod (Negative) 06/08/17 15:52 Urine Nitrite Neg (Negative) 06/08/17 15:52 Urine Bilirubin Neg (Negative) 06/08/17 15:52 Urine Urobilinogen < 2.0 mg/dL (<2.0) 06/08/17 15:52 Ur Leukocyte Esterase Neg (Negative) 06/08/17 15:52 Urine WBC (Auto) 3.0 /HPF (0.0-6.0) 06/08/17 15:52 Urine RBC (Auto) 19.0 /HPF (0.0-6.0) 06/08/17 15:52 U Epithel Cells (Auto) < 1.0 /HPF (0-13.0) 06/08/17 15:52 Urine Mucus Few /HPF 06/08/17 15:52
[2017-06-09] MEDS ORDERED: XYLOCAINE MPF 2% ONE (17:06)
[2017-06-09] MEDS ORDERED: SUBLIMAZE ONE (17:08)
[2017-06-09] MEDS ORDERED: DIPRIVAN 10 MG/ML IV ONE (17:08)
[2017-06-09] MEDS ORDERED: NACL BACTERIOSTATIC INFILTRATI ONE (17:23)
[2017-06-09] MEDS: VANCOMYCIN/NS 1 GM/250 ML 1 GM/250 ML BAG IV SCH ×2 (17:28→18:19)
[2017-06-09] MEDS: NACL 0.9% 1000 ML 1,000 ML IV SCH ×2 (17:35→23:12)
[2017-06-09] MEDS ORDERED: NACL 0.9% 500 ML 500 ML IV ONE (18:40)
[2017-06-10] MEDS: ZOSYN/NS 4.5GM/100ML 4.5 GM/100 ML VIAL IV SCH ×3 (04:48→21:00)
[2017-06-10] MEDS: VANCOMYCIN/NS 1 GM/250 ML 1 GM/250 ML BAG IV SCH ×2 (05:59→18:41)
[2017-06-10 06:31] LABS: Basophils % (Auto) 0.4 % (0.0-1.8); Hemoglobin 10.2 gm/dl (11.8-15.2); Mean Corpuscular HGB Conc 31 % (32-34); Mean Corpuscular Volume 76 fl (84-94); Platelet Count 303 K/mm3 (140-440); Red Blood Count 4.35 M/mm3 (3.65-5.03); White Blood Count 15.9 K/mm3 (4.5-11.0)
[2017-06-10 06:32] LABS: Mean Corpuscular Hemoglobin 23 pg (28-32); Red Cell Distribution Width 21.5 % (13.2-15.2)
[2017-06-10 06:57] LABS: Alanine Aminotransferase 12 units/L (7-56); Albumin 2.4 g/dL (3.9-5); Albumin/Globulin Ratio 0.5 %; Alkaline Phosphatase 67 units/L (35-129); Anion Gap 19 mmol/L; BUN/Creatinine Ratio 17.14; Blood Urea Nitrogen 12 mg/dL (9-20); Calcium 8.6 mg/dL (8.4-10.2); Carbon Dioxide 22 mmol/L (22-30); Chloride 104.7 mmol/L (98-107); Cholesterol 109 mg/dL (50-199); Glucose 127 mg/dL (75-100); HDL Cholesterol 36 mg/dL (40-59); LDL Cholesterol,Direct 60 mg/dL (50-130); Sodium 143 mmol/L (137-145); Total Protein 7.3 g/dL (6.3-8.2); Triglycerides 69 mg/dL (2-149)
[2017-06-10 07:01] LABS: Potassium 2.9 mmol/L (3.6-5.0)
[2017-06-10] MEDS: PEPCID IV SCH ×2 (10:44→22:19)
[2017-06-10] MEDS: KCL 10MEQ/100ML 10 MEQ/100 ML BAG IV SCH ×2 (10:45→12:59)
[2017-06-10] MEDS: NORVASC PO SCH (10:46)
--- NOTE | 2017-06-10 12:29 | Progress Note ---
Assessment and Plan Assessment and plan: Sepsis due to decubitus ulcers. conrtinue Zosyn and vancomycin. Toxic metabolic encephalopathy due to Sepsis Multiple decubitus ulcers, right foot, right hip. Surgeon following. For surgery tomorrow Fever due to sepsis History of stroke with contractures Diabetes melltus type 2. Check fingerstick Q 6h Hypertension. On Norvasc malnutrition. BMI 14.3. Tube feeding Hypokalemia. Replace iv and recheck in am. ( History Interval history: Patient sent in for multiple ulcers, altered mental status Hospitalist Physical - Physical exam Narrative exam: Gen Appearance: Not in acute distress, cachetic HEENT: normocephalic, atraumatic Neck: no JVD Lungs: clear to auscultation bilaterally, no crackles or wheezes Heart: S1 and S2 regular, no murmurs or gallop Abdomen: Soft, non tender, non distended,normal bowel sounds, Extremity: Contractures of extremities,, ulcer right hip, right foot, no clubbing or cyanosis Neuro : Lethargic, non verbal - Constitutional Vitals: Temp Pulse Resp BP Pulse Ox 99.9 F H 107 H 22 152/66 98 06/10/17 09:21 06/10/17 10:46 06/10/17 09:21 06/10/17 10:46 06/10/17 09:21 General appearance: Present: no acute distress, well-nourished Results - Labs CBC & Chem 7: 06/10/17 05:47 06/10/17 05:47 Labs: Laboratory Last Values WBC 15.9 K/mm3 (4.5-11.0) H 06/10/17 05:47 RBC 4.35 M/mm3 (3.65-5.03) 06/10/17 05:47 Hgb 10.2 gm/dl (11.8-15.2) L 06/10/17 05:47 Hct 33.0 % (35.5-45.6) L D 06/10/17 05:47 MCV 76 fl (84-94) L D 06/10/17 05:47 MCH 23 pg (28-32) L 06/10/17 05:47 MCHC 31 % (32-34) L 06/10/17 05:47 RDW 21.5 % (13.2-15.2) H 06/10/17 05:47 Plt Count 303 K/mm3 (140-440) 06/10/17 05:47 Lymph % (Auto) 5.9 % (13.4-35.0) L 06/10/17 05:47 [place] % (Auto) 8.2 % (0.0-7.3) H 06/10/17 05:47 Eos % (Auto) 0.0 % (0.0-4.3) 06/10/17 05:47 Baso % (Auto) 0.4 % (0.0-1.8) 06/10/17 05:47 Lymph # 0.9 K/mm3 (1.2-5.4) L 06/10/17 05:47 [place] # 1.3 K/mm3 (0.0-0.8) H 06/10/17 05:47 Eos # 0.0 K/mm3 (0.0-0.4) 06/10/17 05:47 Baso # 0.1 K/mm3 (0.0-0.1) 06/10/17 05:47 Seg Neutrophils % 85.5 % (40.0-70.0) H 06/10/17 05:47 Seg Neutrophils # 13.6 K/mm3 (1.8-7.7) H 06/10/17 05:47 PT 21.3 Sec. (12.2-14.9) H 06/08/17 15:47 INR 1.74 (0.87-1.13) H 06/08/17 15:47 VBG pH 7.383 (7.320-7.420) 06/08/17 15:47 Sodium 143 mmol/L (137-145) 06/10/17 05:47 Potassium 2.9 mmol/L (3.6-5.0) L* 06/10/17 05:47 Chloride 104.7 mmol/L (98-107) 06/10/17 05:47 Carbon Dioxide 22 mmol/L (22-30) 06/10/17 05:47 Anion Gap 19 mmol/L 06/10/17 05:47 BUN 12 mg/dL (9-20) 06/10/17 05:47 Creatinine 0.7 mg/dL (0.8-1.5) L 06/10/17 05:47 Estimated GFR > 60 ml/min 06/10/17 05:47 BUN/Creatinine Ratio 17.14 % 06/10/17 05:47 Glucose 127 mg/dL (75-100) H 06/10/17 05:47 POC Glucose 125 (70-105) H 06/10/17 06:26 Lactic Acid 1.30 mmol/L (0.7-2.0) 06/09/17 05:54 Calcium 8.6 mg/dL (8.4-10.2) 06/10/17 05:47 Iron 9 ug/dL (49-181) L 06/09/17 05:54 TIBC 141.40 mcg/dL (250-450) L 06/09/17 05:54 % Saturation 6.36 % 06/09/17 05:54 Transferrin 101 mg/dl (180-329) L 06/09/17 05:54 Total Bilirubin 0.60 mg/dL (0.1-1.2) 06/10/17 05:47 AST 24 units/L (5-40) 06/10/17 05:47 ALT 12 units/L (7-56) 06/10/17 05:47 Alkaline Phosphatase 67 units/L (35-129) 06/10/17 05:47 Total Protein 7.3 g/dL (6.3-8.2) 06/10/17 05:47 Albumin 2.4 g/dL (3.9-5) L 06/10/17 05:47 Albumin/Globulin Ratio 0.5 % 06/10/17 05:47 Triglycerides 69 mg/dL (2-149) 06/10/17 05:47 Cholesterol 109 mg/dL (50-199) 06/10/17 05:47 LDL Cholesterol Direct 60 mg/dL (50-130) 06/10/17 05:47 HDL Cholesterol 36 mg/dL (40-59) L 06/10/17 05:47 Cholesterol/HDL Ratio 3.02 % 06/10/17 05:47 Vitamin B12 280.5 pg/mL (211-911) 06/09/17 05:54 Urine Color Yellow (Yellow) 06/08/17 15:52 Urine Turbidity Clear (Clear) 06/08/17 15:52 Urine pH 5.0 (5.0-7.0) 06/08/17 15:52 Ur Specific [place] 1.014 (1.003-1.030) 06/08/17 15:52 Urine Protein 100 mg/dl mg/dL (Negative) 06/08/17 15:52 Urine Glucose (UA) 150 mg/dL (Negative) 06/08/17 15:52 Urine Ketones Tr mg/dL (Negative) 06/08/17 15:52 Urine Blood Mod (Negative) 06/08/17 15:52 Urine Nitrite Neg (Negative) 06/08/17 15:52 Urine Bilirubin Neg (Negative) 06/08/17 15:52 Urine Urobilinogen < 2.0 mg/dL (<2.0) 06/08/17 15:52 Ur Leukocyte Esterase Neg (Negative) 06/08/17 15:52 Urine WBC (Auto) 3.0 /HPF (0.0-6.0) 06/08/17 15:52 Urine RBC (Auto) 19.0 /HPF (0.0-6.0) 06/08/17 15:52 U Epithel Cells (Auto) < 1.0 /HPF (0-13.0) 06/08/17 15:52 Urine Mucus Few /HPF 06/08/17 15:52 Blood Type B POSITIVE 06/09/17 17:25 Antibody Screen TNR 06/09/17 17:25 GABY Antibody Screen Negative 06/09/17 17:25 Crossmatch See Detail 06/09/17 17:25
[2017-06-10] MEDS ORDERED: SIMPLE SYRUP FEEDTUBE PRN ×2 (14:52)
[2017-06-10] MEDS ORDERED: PANCREAZE DR 10,500 UNIT FEEDTUBE PRN (14:52)
[2017-06-10] MEDS ORDERED: SODIUM BICARBONATE FEEDTUBE PRN (14:52)
--- NOTE | 2017-06-10 16:01 | Progress Note ---
Assessment and Plan To OR tomorrow for debridement of right heel, right foot and right hip - Patient Problems (1) Pressure ulcer, heel, right, unstageable Current Visit: Yes Status: Acute (2) Pressure ulcer, hip, right, unstageable Current Visit: Yes Status: Acute (3) Pressure ulcer of right foot, unstageable Current Visit: Yes Status: Acute Subjective Patient Reports: Positive: no new complaints Objective Vital Signs - 12hr 06/10/17 06/10/17 06/10/17 05:25 09:21 10:00 Temperature 98.7 F 99.9 F H Pulse Rate Pulse Rate [ 104 H 98 H Right Radial] Respiratory 18 22 22 Rate Blood Pressure Blood Pressure 142/71 [Left Arm] Blood Pressure 149/69 [Right Arm] O2 Sat by Pulse 96 98 Oximetry 06/10/17 10:46 Temperature Pulse Rate 107 H Pulse Rate [ Right Radial] Respiratory Rate Blood Pressure 152/66 Blood Pressure [Left Arm] Blood Pressure [Right Arm] O2 Sat by Pulse Oximetry - Respiratory clear to auscultation - Abdomen PM_46_EXABD1 4, PM_46_EXABD1 6, PM_46_EXABD1 8 - Labs 06/10/17 05:47 06/10/17 05:47 Diabetes panel 06/10/17 Range/Units 05:47 Sodium 143 (137-145) mmol/L Potassium 2.9 L* (3.6-5.0) mmol/L Chloride 104.7 (98-107) mmol/L Carbon Dioxide 22 (22-30) mmol/L BUN 12 (9-20) mg/dL Creatinine 0.7 L (0.8-1.5) mg/dL Glucose 127 H (75-100) mg/dL Calcium 8.6 (8.4-10.2) mg/dL AST 24 (5-40) units/L ALT 12 (7-56) units/L Alkaline Phosphatase 67 (35-129) units/L Total Protein 7.3 (6.3-8.2) g/dL Albumin 2.4 L (3.9-5) g/dL Triglycerides 69 (2-149) mg/dL HDL Cholesterol 36 L (40-59) mg/dL Calcium panel 06/10/17 Range/Units 05:47 Calcium 8.6 (8.4-10.2) mg/dL Albumin 2.4 L (3.9-5) g/dL Pituitary panel 06/10/17 Range/Units 05:47 Sodium 143 (137-145) mmol/L Potassium 2.9 L* (3.6-5.0) mmol/L Chloride 104.7 (98-107) mmol/L Carbon Dioxide 22 (22-30) mmol/L BUN 12 (9-20) mg/dL Creatinine 0.7 L (0.8-1.5) mg/dL Glucose 127 H (75-100) mg/dL Calcium 8.6 (8.4-10.2) mg/dL Adrenal panel 06/10/17 Range/Units 05:47 Sodium 143 (137-145) mmol/L Potassium 2.9 L* (3.6-5.0) mmol/L Chloride 104.7 (98-107) mmol/L Carbon Dioxide 22 (22-30) mmol/L BUN 12 (9-20) mg/dL Creatinine 0.7 L (0.8-1.5) mg/dL Glucose 127 H (75-100) mg/dL Calcium 8.6 (8.4-10.2) mg/dL Total Bilirubin 0.60 (0.1-1.2) mg/dL AST 24 (5-40) units/L ALT 12 (7-56) units/L Alkaline Phosphatase 67 (35-129) units/L Total Protein 7.3 (6.3-8.2) g/dL Albumin 2.4 L (3.9-5) g/dL
[2017-06-11] MEDS: D5/0.45NS 1,000 ML IV SCH (00:13)
[2017-06-11] MEDS: ZOSYN/NS 4.5GM/100ML 4.5 GM/100 ML VIAL IV SCH ×3 (04:50→22:00)
[2017-06-11] MEDS: TYLENOL PR PRN (04:55)
[2017-06-11] MEDS: VANCOMYCIN/NS 1 GM/250 ML 1 GM/250 ML BAG IV SCH ×2 (05:44→19:33)
--- NOTE | 2017-06-11 11:01 | Progress Note ---
Assessment and Plan Assessment and plan: Sepsis due to decubitus ulcers. continue Zosyn and vancomycin. Toxic metabolic encephalopathy due to Sepsis. he has altered mental status. MRI ordered as was unable to be done because of contractures. Neuro checks every 4 hours Multiple decubitus ulcers, right foot, right hip. Surgeon following. Fever due to sepsis. Tmax 100.5 History of stroke with contractures Diabetes mellitus type 2. Check fingerstick Q 6h Hypertension. BP stable on Norvasc. Malnutrition. BMI 14.3. Tube feeding via PEG tube Hypokalemia. Potassium 2.7 today Replace iv and via PEG and and recheck in am. ( History Interval history: Patient sent in for multiple ulcers, altered mental status, Unable to do MRI because of contractures Hospitalist Physical - Physical exam Narrative exam: Gen Appearance: Not in acute distress, cachetic HEENT: normocephalic, atraumatic Neck: no JVD Lungs: clear to auscultation bilaterally, no crackles or wheezes Heart: S1 and S2 regular, no murmurs or gallop Abdomen: Soft, non tender, non distended,normal bowel sounds, Extremity: Contractures of extremities,, ulcer right hip, right foot, no clubbing or cyanosis Neuro : Lethargic, non verbal - Constitutional Vitals: Temp Pulse Resp BP Pulse Ox 98.6 F 91 H 20 148/72 99 06/11/17 08:20 06/11/17 09:02 06/11/17 08:20 06/11/17 08:20 06/11/17 08:20 General appearance: Present: no acute distress, well-nourished Results - Labs CBC & Chem 7: 06/11/17 10:41 06/11/17 10:41 Labs: Laboratory Last Values WBC 15.9 K/mm3 (4.5-11.0) H 06/10/17 05:47 RBC 4.35 M/mm3 (3.65-5.03) 06/10/17 05:47 Hgb 10.2 gm/dl (11.8-15.2) L 06/10/17 05:47 Hct 33.0 % (35.5-45.6) L D 06/10/17 05:47 MCV 76 fl (84-94) L D 06/10/17 05:47 MCH 23 pg (28-32) L 06/10/17 05:47 MCHC 31 % (32-34) L 06/10/17 05:47 RDW 21.5 % (13.2-15.2) H 06/10/17 05:47 Plt Count 303 K/mm3 (140-440) 06/10/17 05:47 Lymph % (Auto) 5.9 % (13.4-35.0) L 06/10/17 05:47 [place] % (Auto) 8.2 % (0.0-7.3) H 06/10/17 05:47 Eos % (Auto) 0.0 % (0.0-4.3) 06/10/17 05:47 Baso % (Auto) 0.4 % (0.0-1.8) 06/10/17 05:47 Lymph # 0.9 K/mm3 (1.2-5.4) L 06/10/17 05:47 [place] # 1.3 K/mm3 (0.0-0.8) H 06/10/17 05:47 Eos # 0.0 K/mm3 (0.0-0.4) 06/10/17 05:47 Baso # 0.1 K/mm3 (0.0-0.1) 06/10/17 05:47 Seg Neutrophils % 85.5 % (40.0-70.0) H 06/10/17 05:47 Seg Neutrophils # 13.6 K/mm3 (1.8-7.7) H 06/10/17 05:47 PT 21.3 Sec. (12.2-14.9) H 06/08/17 15:47 INR 1.74 (0.87-1.13) H 06/08/17 15:47 VBG pH 7.383 (7.320-7.420) 06/08/17 15:47 Sodium 143 mmol/L (137-145) 06/10/17 05:47 Potassium 2.9 mmol/L (3.6-5.0) L* 06/10/17 05:47 Chloride 104.7 mmol/L (98-107) 06/10/17 05:47 Carbon Dioxide 22 mmol/L (22-30) 06/10/17 05:47 Anion Gap 19 mmol/L 06/10/17 05:47 BUN 12 mg/dL (9-20) 06/10/17 05:47 Creatinine 0.7 mg/dL (0.8-1.5) L 06/10/17 05:47 Estimated GFR > 60 ml/min 06/10/17 05:47 BUN/Creatinine Ratio 17.14 % 06/10/17 05:47 Glucose 127 mg/dL (75-100) H 06/10/17 05:47 POC Glucose 206 (70-105) H 06/10/17 22:52 Lactic Acid 1.30 mmol/L (0.7-2.0) 06/09/17 05:54 Calcium 8.6 mg/dL (8.4-10.2) 06/10/17 05:47 Iron 9 ug/dL (49-181) L 06/09/17 05:54 TIBC 141.40 mcg/dL (250-450) L 06/09/17 05:54 % Saturation 6.36 % 06/09/17 05:54 Transferrin 101 mg/dl (180-329) L 06/09/17 05:54 Total Bilirubin 0.60 mg/dL (0.1-1.2) 06/10/17 05:47 AST 24 units/L (5-40) 06/10/17 05:47 ALT 12 units/L (7-56) 06/10/17 05:47 Alkaline Phosphatase 67 units/L (35-129) 06/10/17 05:47 Total Protein 7.3 g/dL (6.3-8.2) 06/10/17 05:47 Albumin 2.4 g/dL (3.9-5) L 06/10/17 05:47 Albumin/Globulin Ratio 0.5 % 06/10/17 05:47 Triglycerides 69 mg/dL (2-149) 06/10/17 05:47 Cholesterol 109 mg/dL (50-199) 06/10/17 05:47 LDL Cholesterol Direct 60 mg/dL (50-130) 06/10/17 05:47 HDL Cholesterol 36 mg/dL (40-59) L 06/10/17 05:47 Cholesterol/HDL Ratio 3.02 % 06/10/17 05:47 Vitamin B12 280.5 pg/mL (211-911) 06/09/17 05:54 RBC Folic Acid 867 ng/mL (>280) 06/09/17 05:54 Urine Color Yellow (Yellow) 06/08/17 15:52 Urine Turbidity Clear (Clear) 06/08/17 15:52 Urine pH 5.0 (5.0-7.0) 06/08/17 15:52 Ur Specific [place] 1.014 (1.003-1.030) 06/08/17 15:52 Urine Protein 100 mg/dl mg/dL (Negative) 06/08/17 15:52 Urine Glucose (UA) 150 mg/dL (Negative) 06/08/17 15:52 Urine Ketones Tr mg/dL (Negative) 06/08/17 15:52 Urine Blood Mod (Negative) 06/08/17 15:52 Urine Nitrite Neg (Negative) 06/08/17 15:52 Urine Bilirubin Neg (Negative) 06/08/17 15:52 Urine Urobilinogen < 2.0 mg/dL (<2.0) 06/08/17 15:52 Ur Leukocyte Esterase Neg (Negative) 06/08/17 15:52 Urine WBC (Auto) 3.0 /HPF (0.0-6.0) 06/08/17 15:52 Urine RBC (Auto) 19.0 /HPF (0.0-6.0) 06/08/17 15:52 U Epithel Cells (Auto) < 1.0 /HPF (0-13.0) 06/08/17 15:52 Urine Mucus Few /HPF 06/08/17 15:52 Blood Type B POSITIVE 06/09/17 17:25 Antibody Screen TNR 06/09/17 17:25 GABY Antibody Screen Negative 06/09/17 17:25 Crossmatch See Detail 06/09/17 17:25
[2017-06-11] MEDS: PEPCID IV SCH ×2 (11:20→21:59)
[2017-06-11] MEDS: NORVASC PO SCH (11:20)
[2017-06-11 12:03] LABS: Hematocrit 30.7 % (35.5-45.6); Hemoglobin 9.8 gm/dl (11.8-15.2); Mean Corpuscular HGB Conc 32 % (32-34); Mean Corpuscular Volume 75 fl (84-94); Platelet Count 295 K/mm3 (140-440); Red Blood Count 4.09 M/mm3 (3.65-5.03); White Blood Count 15.4 K/mm3 (4.5-11.0)
[2017-06-11 12:15] LABS: Anion Gap 21 mmol/L; Blood Urea Nitrogen 12 mg/dL (9-20); Calcium 8.2 mg/dL (8.4-10.2); Carbon Dioxide 21 mmol/L (22-30); Chloride 109.2 mmol/L (98-107); Glucose 100 mg/dL (75-100); Sodium 148 mmol/L (137-145)
[2017-06-11 12:19] LABS: Potassium 2.7 mmol/L (3.6-5.0)
[2017-06-11 12:21] LABS: Mean Corpuscular Hemoglobin 24 pg (28-32); Red Cell Distribution Width 21.7 % (13.2-15.2)
[2017-06-11] MEDS: POTASSIUM CHLORIDE FEEDTUBE SCH ×2 (14:00→22:00)
[2017-06-11] MEDS: KCL 10MEQ/100ML 10 MEQ/100 ML BAG IV SCH ×4 (17:04→20:58)
[2017-06-11 20:02] LABS: Anion Gap 20 mmol/L; BUN/Creatinine Ratio 21.66; Blood Urea Nitrogen 13 mg/dL (9-20); Calcium 8.4 mg/dL (8.4-10.2); Carbon Dioxide 20 mmol/L (22-30); Chloride 107.8 mmol/L (98-107); Glucose 189 mg/dL (75-100); Potassium 4.4 mmol/L (3.6-5.0); Sodium 143 mmol/L (137-145)
[2017-06-11] MEDS ORDERED: HEPARIN SUB-Q SCH (22:00)
[2017-06-11] MEDS ORDERED: POTASSIUM CHLORIDE FEEDTUBE SCH (22:00)
[2017-06-12] MEDS: ZOSYN/NS 4.5GM/100ML 4.5 GM/100 ML VIAL IV SCH ×3 (05:22→22:50)
[2017-06-12] MEDS: VANCOMYCIN/NS 1 GM/250 ML 1 GM/250 ML BAG IV SCH (06:17)
[2017-06-12 08:51] LABS: Hematocrit 29.4 % (35.5-45.6); Hemoglobin 9.4 gm/dl (11.8-15.2); Mean Corpuscular HGB Conc 32 % (32-34); Mean Corpuscular Volume 76 fl (84-94); Platelet Count 298 K/mm3 (140-440); Red Blood Count 3.87 M/mm3 (3.65-5.03)
[2017-06-12 08:57] LABS: Mean Corpuscular Hemoglobin 24 pg (28-32)
[2017-06-12 08:58] LABS: Red Cell Distribution Width 22.1 % (13.2-15.2)
[2017-06-12 09:03] LABS: Anion Gap 22 mmol/L; BUN/Creatinine Ratio 13.75; Blood Urea Nitrogen 11 mg/dL (9-20); Calcium 8.1 mg/dL (8.4-10.2); Carbon Dioxide 19 mmol/L (22-30); Chloride 110.6 mmol/L (98-107); Glucose 161 mg/dL (75-100); Potassium 3.5 mmol/L (3.6-5.0); Sodium 148 mmol/L (137-145)
[2017-06-12] MEDS: NORVASC PO SCH (10:14)
[2017-06-12] MEDS: PEPCID IV SCH ×2 (12:00→22:53)
[2017-06-12] MEDS ORDERED: DILAUDID ONE (13:01)
[2017-06-12] MEDS ORDERED: DIPRIVAN 10 MG/ML IV ONE (13:01)
[2017-06-12] MEDS ORDERED: XYLOCAINE MPF 2% ONE (13:02)
[2017-06-12] MEDS ORDERED: NACL 0.9% 1000 ML 1,000 ML ONE (14:16)
[2017-06-12] MEDS ORDERED: ZOFRAN ONE (14:17)
--- NOTE | 2017-06-12 14:27 | Post Operative Note ---
Pre-op diagnosis: 1) Pressure ulcer, right heel 2) Pressure ulcer, right hip Post-op diagnosis: same Findings: Right heel with necrotic skin, SQ and bone. Right hip with necrotic muscle. Procedure: Debridement including bone of right heel. Debridement including muscle of right hip. Right heel wound measured 6 X 5 X 1.5 cm after debridement and right hip wound measured 3.5 X 3.5 X 1 cm after debridement. Anesthesia: other (General by LMA) Surgeon: TERESA STEEL Estimated blood loss: 50-100ml Pathology: none (Pus was sent for C&S.) Condition: stable Disposition: PACU
[2017-06-12] MEDS: KCL 10MEQ/100ML 10 MEQ/100 ML BAG IV SCH ×5 (16:22→17:57)
--- NOTE | 2017-06-12 17:45 | Progress Note ---
Assessment and Plan Assessment and plan: Patient 3-6[age]-old male was sent from PMD's office for multiple wounds to sacral region and feet and decreased responsiveness. Patient has been running fever likely sec to Sacral wounds. ALso altered sensorium. NO family member available to give further information.call was placed has not been responded to. Patient was started on empiric antibiotic coverage with consultation to surgery. Imaging studies of the brain did show possible intermediate infarcts with a recommendation for MRI which as been ordered. It is unclear if this is new. Patient does have also evidence of encephalomalacia. (1) Sepsis Sec to decub ulcers.continue Vancomycin and Zosyn pending Blood cultures and wound cultures.Lactic acid initially was high. Repeat has normalized. Patient for surgical debridement today. He remains afebrile post debridement may be converted to by mouth and discharged with follow-up with Wound Care. (2) Toxic metabolic encephalopathy Doubts new CVA, fortunately unable to obtain MRI due to contractures. Continue neuro checks. There is no strong clinical evidence of acute pathology. Although full exam was limited. Patient does speak and mentation appears to have improved although his multiple lethargic and does look improved today compared to previous evaluation (3) Acidosis, metabolic Continue treatment of underlying issue Iv fluids and Iv abx (4) Hyperkalemia Corrected hypo-kalemia will replace. (5) multiple pressure ulcers Surgical consult place patient for debridement today. Would care consult (6) CVA, old, cognitive deficits Current Visit: No Status: Chronic Patient nonambulatory, severely debilitated (7) Malnutrition Dietitian consult requested for supplements and Tube feeding orders (8) T2DM (type 2 diabetes mellitus) Coverage with insulin and Accu-Cheks. Patient on D5ns due to nutrition. We'll adjust insulin accordingly. Metfotmin stopped b/c of Lactic Acidosis. (9) complete immobility due to frailty We'll obtain PT and OT evaluation and treat. (10) HLD (hyperlipidemia) we'll resume statins prior to discharge (11)Anemia- stable post 2 units packed red blood cell transfusion. Since this has remained stable work recommend further evaluation outpatient as patient was to have risk for endoscopy at this time. This no clear evidence of GI bleed. We'll continue PPI or H2 blockers. (12) DVT prophylaxis Current Visit: No Status: Acute Plan to address problem: On Lovenox History Interval history: Patient seen and examined this morning in no acute distress. No other adverse events reported by nursing staff. Hospitalist Physical - Physical exam Narrative exam: VITAL SIGNS: Reviewed. GENERAL: The patient appeared markedly cachectic severely contracted. Lying on the right side Vital signs as documented. HEAD: No signs of head trauma. EYES: Pupils are equal. Extraocular motions intact. EARS: Hearing grossly intact. MOUTH: Oropharynx is normal. NECK: No adenopathy, no JVD. CHEST: Chest with clear breath sounds bilaterally. No wheezes, rales, or rhonchi. CARDIAC: Regular rate and rhythm. S1 and S2, without murmurs, gallops, or rubs. VASCULAR: No Edema. Peripheral pulses normal and equal in all extremities. ABDOMEN: Soft, without detectable tenderness. No sign of distention. No rebound or guarding, and no masses palpated. Bowel Sounds normal. MUSCULOSKELETAL: Severely contracted. Extremities without clubbing, cyanosis or edema. NEUROLOGIC EXAM: Alert and oriented x 3. No focal sensory or strength deficits. Minimally communicative.. Follows commands. PSYCHIATRIC: Mood normal. SKIN: Dressing in place over There is a 2.5 cm right lateral hip ulceration extending at least to the SQ tissue with some undermining. There is a large, black eschar of the right heel with underlying fluctuance, two 1.5 cm ulcers along the right lateral foot. - Constitutional Vitals: Temp Pulse Resp BP Pulse Ox 97.7 F 109 H 16 141/78 97 06/12/17 16:56 06/12/17 16:56 06/12/17 16:56 06/12/17 16:56 06/12/17 16:56 General appearance: Present: no acute distress, well-nourished Results - Labs CBC & Chem 7: 06/13/17 05:52 06/13/17 05:52 Labs: Laboratory Last Values WBC 13.0 K/mm3 (4.5-11.0) H 06/12/17 07:56 RBC 3.87 M/mm3 (3.65-5.03) 06/12/17 07:56 Hgb 9.4 gm/dl (11.8-15.2) L 06/12/17 07:56 Hct 29.4 % (35.5-45.6) L 06/12/17 07:56 MCV 76 fl (84-94) L 06/12/17 07:56 MCH 24 pg (28-32) L 06/12/17 07:56 MCHC 32 % (32-34) 06/12/17 07:56 RDW 22.1 % (13.2-15.2) H 06/12/17 07:56 Plt Count 298 K/mm3 (140-440) 06/12/17 07:56 Lymph % (Auto) 5.9 % (13.4-35.0) L 06/10/17 05:47 [place] % (Auto) 8.2 % (0.0-7.3) H 06/10/17 05:47 Eos % (Auto) 0.0 % (0.0-4.3) 06/10/17 05:47 Baso % (Auto) 0.4 % (0.0-1.8) 06/10/17 05:47 Lymph # 0.9 K/mm3 (1.2-5.4) L 06/10/17 05:47 [place] # 1.3 K/mm3 (0.0-0.8) H 06/10/17 05:47 Eos # 0.0 K/mm3 (0.0-0.4) 06/10/17 05:47 Baso # 0.1 K/mm3 (0.0-0.1) 06/10/17 05:47 Seg Neutrophils % 85.5 % (40.0-70.0) H 06/10/17 05:47 Seg Neutrophils # 13.6 K/mm3 (1.8-7.7) H 06/10/17 05:47 PT 21.3 Sec. (12.2-14.9) H 06/08/17 15:47 INR 1.74 (0.87-1.13) H 06/08/17 15:47 VBG pH 7.383 (7.320-7.420) 06/08/17 15:47 Sodium 148 mmol/L (137-145) H 06/12/17 07:56 Potassium 3.5 mmol/L (3.6-5.0) L D 06/12/17 07:56 Chloride 110.6 mmol/L (98-107) H 06/12/17 07:56 Carbon Dioxide 19 mmol/L (22-30) L 06/12/17 07:56 Anion Gap 22 mmol/L 06/12/17 07:56 BUN 11 mg/dL (9-20) 06/12/17 07:56 Creatinine 0.8 mg/dL (0.8-1.5) 06/12/17 07:56 Estimated GFR > 60 ml/min 06/12/17 07:56 BUN/Creatinine Ratio 13.75 % 06/12/17 07:56 Glucose 161 mg/dL (75-100) H 06/12/17 07:56 POC Glucose 147 (70-105) H 06/12/17 05:32 Lactic Acid 1.30 mmol/L (0.7-2.0) 06/09/17 05:54 Calcium 8.1 mg/dL (8.4-10.2) L 06/12/17 07:56 Iron 9 ug/dL (49-181) L 06/09/17 05:54 TIBC 141.40 mcg/dL (250-450) L 06/09/17 05:54 % Saturation 6.36 % 06/09/17 05:54 Transferrin 101 mg/dl (180-329) L 06/09/17 05:54 Total Bilirubin 0.60 mg/dL (0.1-1.2) 06/10/17 05:47 AST 24 units/L (5-40) 06/10/17 05:47 ALT 12 units/L (7-56) 06/10/17 05:47 Alkaline Phosphatase 67 units/L (35-129) 06/10/17 05:47 Total Protein 7.3 g/dL (6.3-8.2) 06/10/17 05:47 Albumin 2.4 g/dL (3.9-5) L 06/10/17 05:47 Albumin/Globulin Ratio 0.5 % 06/10/17 05:47 Triglycerides 69 mg/dL (2-149) 06/10/17 05:47 Cholesterol 109 mg/dL (50-199) 06/10/17 05:47 LDL Cholesterol Direct 60 mg/dL (50-130) 06/10/17 05:47 HDL Cholesterol 36 mg/dL (40-59) L 06/10/17 05:47 Cholesterol/HDL Ratio 3.02 % 06/10/17 05:47 Vitamin B12 280.5 pg/mL (211-911) 06/09/17 05:54 RBC Folic Acid 867 ng/mL (>280) 06/09/17 05:54 Urine Color Yellow (Yellow) 06/08/17 15:52 Urine Turbidity Clear (Clear) 06/08/17 15:52 Urine pH 5.0 (5.0-7.0) 06/08/17 15:52 Ur Specific [place] 1.014 (1.003-1.030) 06/08/17 15:52 Urine Protein 100 mg/dl mg/dL (Negative) 06/08/17 15:52 Urine Glucose (UA) 150 mg/dL (Negative) 06/08/17 15:52 Urine Ketones Tr mg/dL (Negative) 06/08/17 15:52 Urine Blood Mod (Negative) 06/08/17 15:52 Urine Nitrite Neg (Negative) 06/08/17 15:52 Urine Bilirubin Neg (Negative) 06/08/17 15:52 Urine Urobilinogen < 2.0 mg/dL (<2.0) 06/08/17 15:52 Ur Leukocyte Esterase Neg (Negative) 06/08/17 15:52 Urine WBC (Auto) 3.0 /HPF (0.0-6.0) 06/08/17 15:52 Urine RBC (Auto) 19.0 /HPF (0.0-6.0) 06/08/17 15:52 U Epithel Cells (Auto) < 1.0 /HPF (0-13.0) 06/08/17 15:52 Urine Mucus Few /HPF 06/08/17 15:52 Vancomycin Trough 25.5 ug/mL (5.0-20.0) H 06/11/17 18:11 Blood Type B POSITIVE 06/09/17 17:25 Antibody Screen TNR 06/09/17 17:25 GABY Antibody Screen Negative 06/09/17 17:25 Crossmatch See Detail 06/09/17 17:25
[2017-06-12] MEDS: NACL 0.9% 1000 ML 1,000 ML IV SCH (19:00)
[2017-06-13] MEDS: ZOSYN/NS 4.5GM/100ML 4.5 GM/100 ML VIAL IV SCH ×2 (04:49→13:20)
[2017-06-13 06:25] LABS: Hematocrit 30.4 % (35.5-45.6); Hemoglobin 9.5 gm/dl (11.8-15.2); Mean Corpuscular HGB Conc 31 % (32-34); Mean Corpuscular Volume 76 fl (84-94); Platelet Count 273 K/mm3 (140-440); Red Blood Count 3.99 M/mm3 (3.65-5.03)
[2017-06-13 06:26] LABS: Mean Corpuscular Hemoglobin 24 pg (28-32); Red Cell Distribution Width 21.6 % (13.2-15.2)
[2017-06-13 06:41] LABS: Anion Gap 18 mmol/L; Blood Urea Nitrogen 14 mg/dL (9-20); Calcium 7.8 mg/dL (8.4-10.2); Carbon Dioxide 21 mmol/L (22-30); Chloride 112.1 mmol/L (98-107); Glucose 146 mg/dL (75-100); Potassium 3.9 mmol/L (3.6-5.0); Sodium 147 mmol/L (137-145)
[2017-06-13] MEDS: NACL 0.9% 1000 ML 1,000 ML IV SCH (08:03)
[2017-06-13] MEDS ORDERED: VANCOMYCIN/NS 1 GM/250 ML 1 GM/250 ML BAG IV SCH (09:00)
--- NOTE | 2017-06-13 09:04 | Discharge Summary ---
Providers - Providers Date of Admission: 06/08/17 16:57 Date of discharge: 06/13/17 Attending physician: CHIVO MOORE MD 06/08/17 21:42 Consult to Dietitian/Nutrition [CONS] Routine Physician Instructions: supplements/Malnutrition Reason For Exam: Reason for Consult: Write/Manage Tube Feeding Consult to Wound/ET Nurse [CONS] Routine Reason For Exam: wound eval 06/09/17 13:05 Consult to Physician [CONS] Routine Consulting Provider: TERESA STEEL Reason For Exam: woundebridement Place consult to:: yes Notified:: YES Phone number called:: yes 06/09/17 17:04 Occupational Therapy Evaluate and Treat [CONS] Routine Comment: Reason For Exam: debility Physical Therapy Evaluation and Treat [CONS] Routine Comment: Reason For Exam: debility/Imboile 06/10/17 13:49 Consult to Dietitian/Nutrition [CONS] Routine Physician Instructions: Reason For Exam: Reason for Consult: Write/Manage Tube Feeding 06/13/17 06:00 Consult to Dietitian/Nutrition [CONS] Routine Physician Instructions: Reason For Exam: Pt needs order for feeding/flush Reason for Consult: Write/Manage Tube Feeding Primary care physician: MIRROR PAINTER Hospitalization Condition: Undetermined Disposition: DC/[place]-03 [facility] Time spent for discharge: 35 mins Exam - Constitutional Vitals: Temp Pulse Resp BP Pulse Ox 99.3 F 93 H 22 126/68 96 06/12/17 20:00 06/12/17 20:00 06/12/17 20:00 06/12/17 20:00 06/12/17 20:00 Plan Activity: advance as tolerated, fall precautions Diet: per dietitian instruction Special Instructions: other (daily wound care) Durable Medical Equipment Needed Upon Discharge: other (speciality mattrass for pressure wound) Additional Instructions: follow up at the wound care clinic Follow up with: HORACE WETZEL MD [Primary Care Provider] - 3-5 Days TERESA STEEL MD [Staff Physician] - 7 Days Prescriptions: Ciprofloxacin HCl [Ciprofloxacin TAB] 250 mg PO BID #14 tablet Clindamycin [Clindamycin CAP] 450 mg PO Q8HR #21 capsule
[2017-06-13] MEDS: PEPCID IV SCH (09:18)
[2017-06-13] MEDS: NORVASC PO SCH (09:18)
[2017-06-13] MEDS ORDERED: SIMPLE SYRUP FEEDTUBE PRN ×2 (11:29)
[2017-06-13] MEDS ORDERED: SODIUM BICARBONATE FEEDTUBE PRN (11:29)
[2017-06-13] MEDS ORDERED: PANCREAZE DR 10,500 UNIT FEEDTUBE PRN (11:29)
--- NOTE | 2017-06-13 17:50 | Progress Note ---
Assessment and Plan Assessment and plan: Patient 0-1-[age]-old male was sent from PMD's office for multiple wounds to sacral region and feet and decreased responsiveness. Patient has been running fever likely sec to Sacral wounds. ALso altered sensorium. NO family member available to give further information.call was placed has not been responded to. Patient was started on empiric antibiotic coverage with consultation to surgery. Imaging studies of the brain did show possible intermediate infarcts with a recommendation for MRI which as been ordered. It is unclear if this is new. Patient does have also evidence of encephalomalacia. (1) Sepsis Sec to decub ulcers. Continue Vancomycin and Zosyn pending Blood cultures and wound cultures. Lactic acid initially was high. Repeat has normalized. Patient for surgical debridement today. He remains afebrile post debridement may be converted to by mouth and discharged with follow-up with Wound Care. Tube feeds. Family considering amputation. If amputation is considered, will need vascular input. (2) Toxic metabolic encephalopathy Doubts new CVA, fortunately unable to obtain MRI due to contracture. Continue neuro checks. There is no strong clinical evidence of acute pathology. Although full exam was limited. Patient does speak and mentation appears to have improved although his multiple lethargic and does look improved today compared to previous evaluation (3) Acidosis, metabolic Continue treatment of underlying issue Iv fluids and Iv abx (4) Hyperkalemia Corrected hypo-kalemia will replace. (5) multiple pressure ulcers Surgical consult place patient for debridement today. Would care consult (6) CVA, old, cognitive deficits Current Visit: No Status: Chronic Patient nonambulatory, severely debilitated (7) Malnutrition Dietitian consult requested for supplements and Tube feeding orders (8) T2DM (type 2 diabetes mellitus) Coverage with insulin and Accu-Cheks. Patient on D5ns due to nutrition. We'll adjust insulin accordingly. Metfotmin stopped b/c of Lactic Acidosis. (9) complete immobility due to frailty We'll obtain PT and OT evaluation and treat. (10) HLD (hyperlipidemia) we'll resume statins prior to discharge (11)Anemia- stable post 2 units packed red blood cell transfusion. Since this has remained stable work recommend further evaluation outpatient as patient was to have risk for endoscopy at this time. This no clear evidence of GI bleed. We'll continue PPI or H2 blockers. (12) DVT prophylaxis Current Visit: No Status: Acute Plan to address problem: On Lovenox History Interval history: Patient seen and examined this morning in no acute distress. Post debridement. No other adverse events reported by nursing staff. Hospitalist Physical - Physical exam Narrative exam: VITAL SIGNS: Reviewed. GENERAL: The patient appeared markedly cachectic severely contracted. Lying on the right side Vital signs as documented. HEAD: No signs of head trauma. EYES: Pupils are equal. Extraocular motions intact. EARS: Hearing grossly intact. MOUTH: Oropharynx is normal. NECK: No adenopathy, no JVD. CHEST: Chest with clear breath sounds bilaterally. No wheezes, rales, or rhonchi. CARDIAC: Regular rate and rhythm. S1 and S2, without murmurs, gallops, or rubs. VASCULAR: No Edema. Peripheral pulses normal and equal in all extremities. ABDOMEN: Soft, without detectable tenderness. No sign of distention. No rebound or guarding, and no masses palpated. Bowel Sounds normal. MUSCULOSKELETAL: Severely contracted. Extremities without clubbing, cyanosis or edema. scattered ulcers, NEUROLOGIC EXAM: Alert and oriented x 3. No focal sensory or strength deficits. Minimally communicative.. Follows commands. PSYCHIATRIC: Mood normal. SKIN: Dressing in place over There is a 2.5 cm right lateral hip ulceration extending at least to the SQ tissue with some undermining. There is a large, black eschar of the right heel with underlying fluctuance, two 1.5 cm ulcers along the right lateral foot. - Constitutional Vitals: Temp Pulse Resp BP Pulse Ox 98.2 F 85 20 131/59 96 06/13/17 09:51 06/13/17 09:51 06/13/17 09:51 06/13/17 09:51 06/12/17 20:00 General appearance: Present: no acute distress, well-nourished Results - Labs CBC & Chem 7: 06/14/17 03:24 06/14/17 03:24 Labs: Laboratory Last Values WBC 12.0 K/mm3 (4.5-11.0) H 06/13/17 05:52 RBC 3.99 M/mm3 (3.65-5.03) 06/13/17 05:52 Hgb 9.5 gm/dl (11.8-15.2) L 06/13/17 05:52 Hct 30.4 % (35.5-45.6) L 06/13/17 05:52 MCV 76 fl (84-94) L 06/13/17 05:52 MCH 24 pg (28-32) L 06/13/17 05:52 MCHC 31 % (32-34) L 06/13/17 05:52 RDW 21.6 % (13.2-15.2) H 06/13/17 05:52 Plt Count 273 K/mm3 (140-440) 06/13/17 05:52 Lymph % (Auto) 5.9 % (13.4-35.0) L 06/10/17 05:47 [place] % (Auto) 8.2 % (0.0-7.3) H 06/10/17 05:47 Eos % (Auto) 0.0 % (0.0-4.3) 06/10/17 05:47 Baso % (Auto) 0.4 % (0.0-1.8) 06/10/17 05:47 Lymph # 0.9 K/mm3 (1.2-5.4) L 06/10/17 05:47 [place] # 1.3 K/mm3 (0.0-0.8) H 06/10/17 05:47 Eos # 0.0 K/mm3 (0.0-0.4) 06/10/17 05:47 Baso # 0.1 K/mm3 (0.0-0.1) 06/10/17 05:47 Seg Neutrophils % 85.5 % (40.0-70.0) H 06/10/17 05:47 Seg Neutrophils # 13.6 K/mm3 (1.8-7.7) H 06/10/17 05:47 PT 21.3 Sec. (12.2-14.9) H 06/08/17 15:47 INR 1.74 (0.87-1.13) H 06/08/17 15:47 VBG pH 7.383 (7.320-7.420) 06/08/17 15:47 Sodium 147 mmol/L (137-145) H 06/13/17 05:52 Potassium 3.9 mmol/L (3.6-5.0) 06/13/17 05:52 Chloride 112.1 mmol/L (98-107) H 06/13/17 05:52 Carbon Dioxide 21 mmol/L (22-30) L 06/13/17 05:52 Anion Gap 18 mmol/L 06/13/17 05:52 BUN 14 mg/dL (9-20) 06/13/17 05:52 Creatinine 0.8 mg/dL (0.8-1.5) 06/13/17 05:52 Estimated GFR > 60 ml/min 06/13/17 05:52 BUN/Creatinine Ratio 17.50 % 06/13/17 05:52 Glucose 146 mg/dL (75-100) H 06/13/17 05:52 POC Glucose 164 (70-105) H 06/13/17 11:39 Lactic Acid 1.30 mmol/L (0.7-2.0) 06/09/17 05:54 Calcium 7.8 mg/dL (8.4-10.2) L 06/13/17 05:52 Iron 9 ug/dL (49-181) L 06/09/17 05:54 TIBC 141.40 mcg/dL (250-450) L 06/09/17 05:54 % Saturation 6.36 % 06/09/17 05:54 Transferrin 101 mg/dl (180-329) L 06/09/17 05:54 Total Bilirubin 0.60 mg/dL (0.1-1.2) 06/10/17 05:47 AST 24 units/L (5-40) 06/10/17 05:47 ALT 12 units/L (7-56) 06/10/17 05:47 Alkaline Phosphatase 67 units/L (35-129) 06/10/17 05:47 Total Protein 7.3 g/dL (6.3-8.2) 06/10/17 05:47 Albumin 2.4 g/dL (3.9-5) L 06/10/17 05:47 Albumin/Globulin Ratio 0.5 % 06/10/17 05:47 Triglycerides 69 mg/dL (2-149) 06/10/17 05:47 Cholesterol 109 mg/dL (50-199) 06/10/17 05:47 LDL Cholesterol Direct 60 mg/dL (50-130) 06/10/17 05:47 HDL Cholesterol 36 mg/dL (40-59) L 06/10/17 05:47 Cholesterol/HDL Ratio 3.02 % 06/10/17 05:47 Vitamin B12 280.5 pg/mL (211-911) 06/09/17 05:54 RBC Folic Acid 867 ng/mL (>280) 06/09/17 05:54 Urine Color Yellow (Yellow) 06/08/17 15:52 Urine Turbidity Clear (Clear) 06/08/17 15:52 Urine pH 5.0 (5.0-7.0) 06/08/17 15:52 Ur Specific [place] 1.014 (1.003-1.030) 06/08/17 15:52 Urine Protein 100 mg/dl mg/dL (Negative) 06/08/17 15:52 Urine Glucose (UA) 150 mg/dL (Negative) 06/08/17 15:52 Urine Ketones Tr mg/dL (Negative) 06/08/17 15:52 Urine Blood Mod (Negative) 06/08/17 15:52 Urine Nitrite Neg (Negative) 06/08/17 15:52 Urine Bilirubin Neg (Negative) 06/08/17 15:52 Urine Urobilinogen < 2.0 mg/dL (<2.0) 06/08/17 15:52 Ur Leukocyte Esterase Neg (Negative) 06/08/17 15:52 Urine WBC (Auto) 3.0 /HPF (0.0-6.0) 06/08/17 15:52 Urine RBC (Auto) 19.0 /HPF (0.0-6.0) 06/08/17 15:52 U Epithel Cells (Auto) < 1.0 /HPF (0-13.0) 06/08/17 15:52 Urine Mucus Few /HPF 06/08/17 15:52 Vancomycin Trough 25.5 ug/mL (5.0-20.0) H 06/11/17 18:11 Blood Type B POSITIVE 06/09/17 17:25 Antibody Screen TNR 06/09/17 17:25 GABY Antibody Screen Negative 06/09/17 17:25 Crossmatch See Detail 06/09/17 17:25
[2017-06-14 04:14] LABS: Hematocrit 29.7 % (35.5-45.6); Hemoglobin 9.5 gm/dl (11.8-15.2); Mean Corpuscular HGB Conc 32 % (32-34); Mean Corpuscular Volume 75 fl (84-94); Platelet Count 278 K/mm3 (140-440); Red Blood Count 3.97 M/mm3 (3.65-5.03); White Blood Count 10.7 K/mm3 (4.5-11.0)
[2017-06-14 04:17] LABS: Mean Corpuscular Hemoglobin 24 pg (28-32); Red Cell Distribution Width 22.4 % (13.2-15.2)
[2017-06-14 04:22] LABS: Anion Gap 19 mmol/L; Blood Urea Nitrogen 16 mg/dL (9-20); Carbon Dioxide 24 mmol/L (22-30); Chloride 110.6 mmol/L (98-107); Glucose 193 mg/dL (75-100); Potassium 3.1 mmol/L (3.6-5.0); Sodium 150 mmol/L (137-145)
[2017-06-14] MEDS: NORVASC PO SCH (09:50)
[2017-06-14] MEDS ORDERED: POTASSIUM CHLORIDE FEEDTUBE ONE (09:56)
--- NOTE | 2017-06-14 10:14 | Operative Report ---
Operative Report Operative Report: Date of operation: 06/12/2017 Preoperative diagnosis: 1) pressure ulcer, right heel, unstageable 2) pressure ulcer, right hip, unstageable Postoperative diagnoses: 1) stage IV pressure ulcer of right heel 2) stage III pressure ulcer of right hip Operation: 1) debridement of necrotic skin, subcutaneous tissue and bone, right heel 2) debridement of necrotic skin, subcutaneous tissue and muscle of right hip Surgeon: Marco Antonio Jin M.D. Anesthesia: Gen. by LMA EBL: 50 mL There were no complications, drains or specimens. Aerobic and anaerobic cultures of the purulent fluid from his right heel ulcer were obtained. Description of procedure: Patient was placed supine on the operating room table. Gen. anesthesia was administered by LMA. His right foot, leg and thigh were prepped and draped in usual sterile manner. The debridement was initiated on his right heel. Sharp excisional debridement resulted in identification of necrotic, purulent tissue all the way down to his calcaneus. The calcaneus was friable and some of this was debrided as well. Cultures of the purulent fluid were obtained. The debridement was continued until slightly oozing margins were encountered. The wound was then dressed with a saline moistened Kerlix roll followed by Kerlix wrap. Attention was then directed to the right hip decubitus. This was debrided with the cutting current of the Bovie until all nonviable tissue was excised. This included excision of necrotic skin, subcutaneous tissue and muscle. A small amount of oozing was controlled with the Bovie. The wound was then packed open with a saline moistened Kerlix roll. This was followed by dry 4 x 4's and Medipore tape. Patient tolerated the procedure well. He was taken to PACU in stable condition.
--- NOTE | 2017-06-14 12:47 | Progress Note ---
Assessment and Plan Assessment and plan: Patient 6-8[age]-old male was sent from PMD's office for multiple wounds to sacral region and feet and decreased responsiveness. Patient has been running fever likely sec to Sacral wounds. ALso altered sensorium. NO family member available to give further information.call was placed has not been responded to. Patient was started on empiric antibiotic coverage with consultation to surgery. Imaging studies of the brain did show possible intermediate infarcts with a recommendation for MRI which as been ordered. It is unclear if this is new. Patient does have also evidence of encephalomalacia. (1) Sepsis Sec to decub ulcers. Continue Vancomycin and Zosyn pending Blood cultures and wound cultures. Lactic acid initially was high. Repeat has normalized. Patient for surgical debridement done also concern about healing prompted a discussion with vascular about repolarazition.. He remains afebrile post debridement may be converted to by mouth and discharged with follow-up with Wound Care. Tube feeds. Family considering amputation. If amputation is considered, will need vascular input. Consult placed (2) Toxic metabolic encephalopathy Doubts new CVA, fortunately unable to obtain MRI due to contracture. Continue neuro checks. There is no strong clinical evidence of acute pathology. Although full exam was limited. Patient does speak and mentation appears to have improved although his multiple lethargic and does look improved today compared to previous evaluation. Will need any complaints are well come (3) Acidosis, metabolic Continue treatment of underlying issue Iv fluids and Iv abx (4) Hyperkalemia Corrected hypo-kalemia will replace. (5) multiple pressure ulcers Surgical consult place patient for debridement today. Would care consult (6) CVA, old, cognitive deficits Current Visit: No Status: Chronic Patient nonambulatory, severely debilitated (7) Malnutrition Dietitian consult requested for supplements and Tube feeding orders (8) T2DM (type 2 diabetes mellitus) Coverage with insulin and Accu-Cheks. Patient on D5ns due to nutrition. We'll adjust insulin accordingly. Metfotmin stopped b/c of Lactic Acidosis. (9) complete immobility due to frailty We'll obtain PT and OT evaluation and treat. (10) HLD (hyperlipidemia) we'll resume statins prior to discharge (11)Anemia- stable post 2 units packed red blood cell transfusion. Since this has remained stable work recommend further evaluation outpatient as patient was to have risk for endoscopy at this time. This no clear evidence of GI bleed. We'll continue PPI or H2 blockers. (12) DVT prophylaxis Current Visit: No Status: Acute Plan to address problem: On Lovenox Disucssed with family about amputation. History Interval history: Patient seen and examined this morning in no acute distress. Some pain at the surgical site, no fever, nausea or vomiting reported by nursing staff. No other adverse events reported by nursing staff. Hospitalist Physical - Physical exam Narrative exam: VITAL SIGNS: Reviewed. GENERAL: The patient appeared markedly cachectic severely contracted. Lying on the right side Vital signs as documented. HEAD: No signs of head trauma. EYES: Pupils are equal. Extraocular motions intact. EARS: Hearing grossly intact. MOUTH: Oropharynx is normal. NECK: No adenopathy, no JVD. CHEST: Chest with clear breath sounds bilaterally. No wheezes, rales, or rhonchi. CARDIAC: Regular rate and rhythm. S1 and S2, without murmurs, gallops, or rubs. VASCULAR: No Edema. Peripheral pulses normal and equal in all extremities. ABDOMEN: Soft, without detectable tenderness. No sign of distention. No rebound or guarding, and no masses palpated. Bowel Sounds normal. MUSCULOSKELETAL: Severely contracted. Extremities without clubbing, cyanosis or edema. scattered ulcers, NEUROLOGIC EXAM: Alert and oriented x 3. No focal sensory or strength deficits. Minimally communicative.. Follows commands. PSYCHIATRIC: Mood normal. SKIN: clean base right base ulcer. pressure ulcer at the sacrum - Constitutional Vitals: Temp Pulse Resp BP Pulse Ox 98.8 F 94 H 20 136/67 100 06/14/17 09:29 06/14/17 09:50 06/14/17 09:29 06/14/17 09:50 06/13/17 22:00 General appearance: Present: no acute distress, well-nourished Results - Labs CBC & Chem 7: 06/14/17 03:24 06/14/17 13:07 Labs: Laboratory Last Values WBC 10.7 K/mm3 (4.5-11.0) 06/14/17 03:24 RBC 3.97 M/mm3 (3.65-5.03) 06/14/17 03:24 Hgb 9.5 gm/dl (11.8-15.2) L 06/14/17 03:24 Hct 29.7 % (35.5-45.6) L 06/14/17 03:24 MCV 75 fl (84-94) L 06/14/17 03:24 MCH 24 pg (28-32) L 06/14/17 03:24 MCHC 32 % (32-34) 06/14/17 03:24 RDW 22.4 % (13.2-15.2) H 06/14/17 03:24 Plt Count 278 K/mm3 (140-440) 06/14/17 03:24 Lymph % (Auto) 5.9 % (13.4-35.0) L 06/10/17 05:47 [place] % (Auto) 8.2 % (0.0-7.3) H 06/10/17 05:47 Eos % (Auto) 0.0 % (0.0-4.3) 06/10/17 05:47 Baso % (Auto) 0.4 % (0.0-1.8) 06/10/17 05:47 Lymph # 0.9 K/mm3 (1.2-5.4) L 06/10/17 05:47 [place] # 1.3 K/mm3 (0.0-0.8) H 06/10/17 05:47 Eos # 0.0 K/mm3 (0.0-0.4) 06/10/17 05:47 Baso # 0.1 K/mm3 (0.0-0.1) 06/10/17 05:47 Seg Neutrophils % 85.5 % (40.0-70.0) H 06/10/17 05:47 Seg Neutrophils # 13.6 K/mm3 (1.8-7.7) H 06/10/17 05:47 PT 21.3 Sec. (12.2-14.9) H 06/08/17 15:47 INR 1.74 (0.87-1.13) H 06/08/17 15:47 VBG pH 7.383 (7.320-7.420) 06/08/17 15:47 Sodium 150 mmol/L (137-145) H 06/14/17 03:24 Potassium 3.1 mmol/L (3.6-5.0) L D 06/14/17 03:24 Chloride 110.6 mmol/L (98-107) H 06/14/17 03:24 Carbon Dioxide 24 mmol/L (22-30) 06/14/17 03:24 Anion Gap 19 mmol/L 06/14/17 03:24 BUN 16 mg/dL (9-20) 06/14/17 03:24 Creatinine 0.8 mg/dL (0.8-1.5) 06/14/17 03:24 Estimated GFR > 60 ml/min 06/14/17 03:24 BUN/Creatinine Ratio 20.00 % 06/14/17 03:24 Glucose 193 mg/dL (75-100) H 06/14/17 03:24 POC Glucose 198 (70-105) H 06/14/17 11:25 Lactic Acid 1.30 mmol/L (0.7-2.0) 06/09/17 05:54 Calcium 8.0 mg/dL (8.4-10.2) L 06/14/17 03:24 Iron 9 ug/dL (49-181) L 06/09/17 05:54 TIBC 141.40 mcg/dL (250-450) L 06/09/17 05:54 % Saturation 6.36 % 06/09/17 05:54 Transferrin 101 mg/dl (180-329) L 06/09/17 05:54 Total Bilirubin 0.60 mg/dL (0.1-1.2) 06/10/17 05:47 AST 24 units/L (5-40) 06/10/17 05:47 ALT 12 units/L (7-56) 06/10/17 05:47 Alkaline Phosphatase 67 units/L (35-129) 06/10/17 05:47 Total Protein 7.3 g/dL (6.3-8.2) 06/10/17 05:47 Albumin 2.4 g/dL (3.9-5) L 06/10/17 05:47 Albumin/Globulin Ratio 0.5 % 06/10/17 05:47 Triglycerides 69 mg/dL (2-149) 06/10/17 05:47 Cholesterol 109 mg/dL (50-199) 06/10/17 05:47 LDL Cholesterol Direct 60 mg/dL (50-130) 06/10/17 05:47 HDL Cholesterol 36 mg/dL (40-59) L 06/10/17 05:47 Cholesterol/HDL Ratio 3.02 % 06/10/17 05:47 Vitamin B12 280.5 pg/mL (211-911) 06/09/17 05:54 RBC Folic Acid 867 ng/mL (>280) 06/09/17 05:54 Urine Color Yellow (Yellow) 06/08/17 15:52 Urine Turbidity Clear (Clear) 06/08/17 15:52 Urine pH 5.0 (5.0-7.0) 06/08/17 15:52 Ur Specific [place] 1.014 (1.003-1.030) 06/08/17 15:52 Urine Protein 100 mg/dl mg/dL (Negative) 06/08/17 15:52 Urine Glucose (UA) 150 mg/dL (Negative) 06/08/17 15:52 Urine Ketones Tr mg/dL (Negative) 06/08/17 15:52 Urine Blood Mod (Negative) 06/08/17 15:52 Urine Nitrite Neg (Negative) 06/08/17 15:52 Urine Bilirubin Neg (Negative) 06/08/17 15:52 Urine Urobilinogen < 2.0 mg/dL (<2.0) 06/08/17 15:52 Ur Leukocyte Esterase Neg (Negative) 06/08/17 15:52 Urine WBC (Auto) 3.0 /HPF (0.0-6.0) 06/08/17 15:52 Urine RBC (Auto) 19.0 /HPF (0.0-6.0) 06/08/17 15:52 U Epithel Cells (Auto) < 1.0 /HPF (0-13.0) 06/08/17 15:52 Urine Mucus Few /HPF 06/08/17 15:52 Vancomycin Trough 25.5 ug/mL (5.0-20.0) H 06/11/17 18:11 Blood Type B POSITIVE 06/09/17 17:25 Antibody Screen TNR 06/09/17 17:25 GABY Antibody Screen Negative 06/09/17 17:25 Crossmatch See Detail 06/09/17 17:25
--- NOTE | 2017-06-14 14:37 | Progress Note ---
Assessment and Plan I will call the pt's son, Royal, to determine if he is ready to proceed with a right AKA. - Patient Problems (1) Pressure ulcer, heel, right, unstageable Current Visit: Yes Status: Acute (2) Pressure ulcer, hip, right, unstageable Current Visit: Yes Status: Acute (3) Pressure ulcer of right foot, unstageable Current Visit: Yes Status: Acute Subjective Patient Reports: Positive: no new complaints Objective Vital Signs - 12hr 06/14/17 06/14/17 06/14/17 09:29 09:50 10:00 Temperature 98.8 F Pulse Rate 94 H Pulse Rate [ 94 H From Monitor] Pulse Rate [ 20 L Right Radial] Respiratory 20 16 Rate Blood Pressure 136/67 Blood Pressure 136/67 [Right Arm] - General physical appearance chronically ill - Respiratory clear to auscultation - Abdomen soft Hernia: none - Integumentary other (Dressing in place, right heel and right hip) - Labs 06/14/17 03:24 06/14/17 13:07 Diabetes panel 06/14/17 06/14/17 Range/Units 03:24 13:07 Sodium 150 H 146 H (137-145) mmol/L Potassium 3.1 L D (3.6-5.0) mmol/L Chloride 110.6 H (98-107) mmol/L Carbon Dioxide 24 (22-30) mmol/L BUN 16 (9-20) mg/dL Creatinine 0.8 (0.8-1.5) mg/dL Glucose 193 H (75-100) mg/dL Calcium 8.0 L (8.4-10.2) mg/dL Calcium panel 06/14/17 Range/Units 03:24 Calcium 8.0 L (8.4-10.2) mg/dL Pituitary panel 06/14/17 06/14/17 Range/Units 03:24 13:07 Sodium 150 H 146 H (137-145) mmol/L Potassium 3.1 L D (3.6-5.0) mmol/L Chloride 110.6 H (98-107) mmol/L Carbon Dioxide 24 (22-30) mmol/L BUN 16 (9-20) mg/dL Creatinine 0.8 (0.8-1.5) mg/dL Glucose 193 H (75-100) mg/dL Calcium 8.0 L (8.4-10.2) mg/dL Adrenal panel 06/14/17 06/14/17 Range/Units 03:24 13:07 Sodium 150 H 146 H (137-145) mmol/L Potassium 3.1 L D (3.6-5.0) mmol/L Chloride 110.6 H (98-107) mmol/L Carbon Dioxide 24 (22-30) mmol/L BUN 16 (9-20) mg/dL Creatinine 0.8 (0.8-1.5) mg/dL Glucose 193 H (75-100) mg/dL Calcium 8.0 L (8.4-10.2) mg/dL
--- NOTE | 2017-06-14 15:47 | Consultation ---
History of Present Illness - Reason for Consult Consult date: 06/14/17 Right Foot Heel Ulcer Requesting physician: CHIVO MOORE - History of Present Illness The patient is a 71-year-old male with a history of diabetes mellitus and previous strokes that have left him nonambulatory. The patient's most recent stroke was 2.5 years ago and he has not ambulated since that time. His legs have become contracted bilaterally and his developed a decubitus ulcer of his right heel. The family was initially performing dressing changes however this became too was to handle so they brought him to the emergency room for evaluation. Since hospitalization he has had his right heel debrided by general surgery who describes a significant amount of necrotic tissue but also what appeared to be osteomyelitis of the calcaneus. 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 The patient's son is in the room at the time of examination has provided the past medical history. He also states that the family has had a previous discussion about the patient's will manage him and we discussed the possibility of amputation. We will consulted to evaluate the patient's wounds and discussed the possibility of the amputation. Past History Past Medical History: diabetes, hypertension, hyperlipidemia, stroke (leaflet and the patient nonambulatory and contracted bilaterally) Past Surgical History: Other (debridement of his right heel, PEG) Social history: lives with family Family history: no significant family history Medications and Allergies Allergies Allergy/AdvReac Type Severity Reaction Status Date / Time No Known Allergies Allergy Unverified 03/10/14 23:36 Home Medications Medication Instructions Recorded Confirmed Last Taken Type Aspirin [Aspirin TAB] 325 mg PO DAILY 03/10/14 06/09/17 2 Days Ago History Simvastatin 20 mg PO QHS 03/10/14 06/09/17 2 Days Ago History amLODIPine [Norvasc] 10 mg PO DAILY 03/10/14 06/09/17 2 Days Ago History metFORMIN [Glucophage] 500 mg PO BID 03/10/14 06/09/17 2 Days Ago History Acetaminophen [Acetaminophen TAB] 650 mg PO Q4H PRN #20 tablet 03/21/14 3 Days Ago Rx Ciprofloxacin HCl [Ciprofloxacin 250 mg PO BID #14 tablet 06/13/17 Unknown Rx TAB] Clindamycin [Clindamycin CAP] 450 mg PO Q8HR #21 capsule 06/13/17 Unknown Rx Active Meds: Active Medications Acetaminophen (Tylenol) 650 mg TN Q4H PRN PRN Reason: Pain MILD(1-3)/Fever >100.5/MONGE Last Admin: 06/11/17 04:55 Dose: 650 mg Amlodipine Besylate (Norvasc) 10 mg PO DAILY ROSA Last Admin: 06/14/17 09:50 Dose: 10 mg Lipase/Protease/Amylase (Pancreaze Dr 10,500 Unit) 1 each FEEDTUBE PRN PRN PRN Reason: For Clogged Feeding Tube Bisacodyl (Dulcolax) 10 mg TN QDAY PRN PRN Reason: Constipation unrelieved by MOM Hydromorphone HCl (Dilaudid) 0.5 mg IV Q3H PRN PRN Reason: Pain , Severe (7-10) Insulin Human Regular (Novolin R) 0 units SUB-Q Q6HR ROSA PRN Reason: Protocol Last Admin: 06/14/17 12:06 Dose: 2 units Magnesium Hydroxide (Milk Of Magnesia) 30 ml PO Q4H PRN PRN Reason: Constipation Ondansetron HCl (Zofran) 4 mg IV Q8H PRN PRN Reason: N/V unrelieved by Reglan Simple Syrup (Simple Syrup) 15 ml FEEDTUBE PRN PRN PRN Reason: Hypoglycemia Simple Syrup (Simple Syrup) 30 ml FEEDTUBE PRN PRN PRN Reason: Hypoglycemia Sodium Bicarbonate (Sodium Bicarbonate) 325 mg FEEDTUBE PRN PRN PRN Reason: For Clogged Feeding Tube Review of Systems ROS unobtainable: due to mental status Exam - Constitutional Vitals: Temp Pulse Resp BP Pulse Ox 98.8 F 94 H 16 136/67 100 06/14/17 09:29 06/14/17 09:50 06/14/17 10:00 06/14/17 09:50 06/13/17 22:00 General appearance: Present: no acute distress, cachectic, other (contracture of bilteral lower extremties) - Neck Neck: Present: supple - Respiratory Respiratory effort: normal - Cardiovascular Rhythm: regular - Extremities Extremities: abnormal (Contracted bilateral lower exterrmities, right heel ulcer with clean tissue and no obvious signs of infection, calcaneous appears exposed) - Abdominal General gastrointestinal: Present: soft, non-distended, other (PEG in place) Male genitourinary: Present: deferred - Rectal Rectal Exam: other (Stool on left leg from BM) - Psychiatric Psychiatric: other (Unable to assess secondary to noncommunicative) Results - Labs CBC & Chem 7: 06/14/17 03:24 06/14/17 13:07 Labs: Abnormal lab results 06/13/17 06/13/17 06/14/17 Range/Units 18:55 23:40 03:24 Hgb 9.5 L (11.8-15.2) gm/dl Hct 29.7 L (35.5-45.6) % MCV 75 L (84-94) fl MCH 24 L (28-32) pg RDW 22.4 H (13.2-15.2) % Sodium (137-145) mmol/L Potassium (3.6-5.0) mmol/L Chloride (98-107) mmol/L Glucose (75-100) mg/dL POC Glucose 192 H 124 H (70-105) Calcium (8.4-10.2) mg/dL 06/14/17 06/14/17 06/14/17 Range/Units 03:24 05:47 11:25 Hgb (11.8-15.2) gm/dl Hct (35.5-45.6) % MCV (84-94) fl MCH (28-32) pg RDW (13.2-15.2) % Sodium 150 H (137-145) mmol/L Potassium 3.1 L D (3.6-5.0) mmol/L Chloride 110.6 H (98-107) mmol/L Glucose 193 H (75-100) mg/dL POC Glucose 218 H 198 H (70-105) Calcium 8.0 L (8.4-10.2) mg/dL 06/14/17 Range/Units 13:07 Hgb (11.8-15.2) gm/dl Hct (35.5-45.6) % MCV (84-94) fl MCH (28-32) pg RDW (13.2-15.2) % Sodium 146 H (137-145) mmol/L Potassium (3.6-5.0) mmol/L Chloride (98-107) mmol/L Glucose (75-100) mg/dL POC Glucose (70-105) Calcium (8.4-10.2) mg/dL Assessment and Plan The patient is a 71 year old male with bilateral contracted lower extremities secondary to a stroke 2 1/2 years ago. He has a pressure ulcer on his right heel that was recently debrided and grossly has evidence of osteomyelitis. we discussed the options with the son. The patient is not a candidate for revascularization secondary to his contracted limbs. The other options include local wound care which caries the risk of further tissue loss and possible sepsis if his wound continue to deteriorate. The other option is an Above Knee Amputation. This carries the risk of possible complications of anesthesia, bleeding, infection, and nonhealing wounds. It is rare that a patient can't heal an AKA as there is typically a significant amount of flow to the thigh from both in-line flow and collateral vessels. The patient's son again stated that the family has discussed the option of amputation and would like to proceed with the amputation. He has expressed understanding of the risk and will discuss this with his family. We will consult anesthesia and plan to proceed with a right AKA this week, if the schedule permits.
[2017-06-14] MEDS: KCL 10MEQ/100ML 10 MEQ/100 ML BAG IV SCH (19:35)
[2017-06-15] MEDS: LEVAQUIN 750MG/150ML 750 MG/150 ML BAG IV SCH (10:00)
[2017-06-15] MEDS: NORVASC PO SCH (10:00)
--- NOTE | 2017-06-15 13:01 | Event Note ---
Date: 06/15/17 Consent obtained for RIGHT AKA via Royal, patient's son, over the phone. He discussed with the family and everyone is in agreement. I spoke to the Anesthesia service today regarding preoperative evaluation. I was advised to recheck the patient's INR (most recently 1.74 on 06/08/17) to see if spinal anesthesia could be an option for him. They will see him today as well.
[2017-06-15 15:29] LABS: INR 1.61 (0.87-1.13)
--- NOTE | 2017-06-15 15:40 | Progress Note ---
Assessment and Plan Assessment and plan: Sepsis -Secondary to decubitus ulcer -Wound culture grew gram-positive rods I started him on IV levaquin - Surgery is evaluating him to do amputation History of CVA -Supportive care Type 2 diabetes mellitus - Accuchecks - SSI Hypertension -Continue medications Metabolic acidosis - Continue bicarbonate Immobility Hyperlipidemia Anemia -Stable after transfusion of 2 units of blood DVT prophylaxis -Lovenox Disposition Will discharge her after amputation. History Interval history: Agent was seen and evaluated this morning, patient is noncommunicative. Hospitalist Physical - Physical exam Narrative exam: Not in cardiopulmonary distress. The patient is cachectic. Vital signs as documented. Head exam is unremarkable. No scleral icterus . Neck is without jugular venous distension, thyromegaly, or carotid bruits. Lungs are clear to auscultation. Cardiac exam reveals regular rate and Rhythm. First and second heart sounds normal. No murmurs, rubs or gallops. Abdominal exam reveals normal bowel sounds, no masses, no organomegaly and no aortic enlargement. Extremities contracted with ulcer on the right foot, leg. [employer]: Non communicative. - Constitutional Vitals: Temp Pulse Resp BP Pulse Ox 98.9 F 101 H 18 141/76 100 06/15/17 10:00 06/15/17 10:00 06/15/17 10:00 06/15/17 10:00 06/15/17 10:00 General appearance: Present: no acute distress, well-nourished Results - Labs CBC & Chem 7: 06/14/17 03:24 06/14/17 13:07 Labs: Laboratory Last Values WBC 10.7 K/mm3 (4.5-11.0) 06/14/17 03:24 RBC 3.97 M/mm3 (3.65-5.03) 06/14/17 03:24 Hgb 9.5 gm/dl (11.8-15.2) L 06/14/17 03:24 Hct 29.7 % (35.5-45.6) L 06/14/17 03:24 MCV 75 fl (84-94) L 06/14/17 03:24 MCH 24 pg (28-32) L 06/14/17 03:24 MCHC 32 % (32-34) 06/14/17 03:24 RDW 22.4 % (13.2-15.2) H 06/14/17 03:24 Plt Count 278 K/mm3 (140-440) 06/14/17 03:24 Lymph % (Auto) 5.9 % (13.4-35.0) L 06/10/17 05:47 [place] % (Auto) 8.2 % (0.0-7.3) H 06/10/17 05:47 Eos % (Auto) 0.0 % (0.0-4.3) 06/10/17 05:47 Baso % (Auto) 0.4 % (0.0-1.8) 06/10/17 05:47 Lymph # 0.9 K/mm3 (1.2-5.4) L 06/10/17 05:47 [place] # 1.3 K/mm3 (0.0-0.8) H 06/10/17 05:47 Eos # 0.0 K/mm3 (0.0-0.4) 06/10/17 05:47 Baso # 0.1 K/mm3 (0.0-0.1) 06/10/17 05:47 Seg Neutrophils % 85.5 % (40.0-70.0) H 06/10/17 05:47 Seg Neutrophils # 13.6 K/mm3 (1.8-7.7) H 06/10/17 05:47 PT 19.1 Sec. (12.2-14.9) H 06/15/17 14:55 INR 1.61 (0.87-1.13) H 06/15/17 14:55 VBG pH 7.383 (7.320-7.420) 06/08/17 15:47 Sodium 146 mmol/L (137-145) H 06/14/17 13:07 Potassium 3.1 mmol/L (3.6-5.0) L D 06/14/17 03:24 Chloride 110.6 mmol/L (98-107) H 06/14/17 03:24 Carbon Dioxide 24 mmol/L (22-30) 06/14/17 03:24 Anion Gap 19 mmol/L 06/14/17 03:24 BUN 16 mg/dL (9-20) 06/14/17 03:24 Creatinine 0.8 mg/dL (0.8-1.5) 06/14/17 03:24 Estimated GFR > 60 ml/min 06/14/17 03:24 BUN/Creatinine Ratio 20.00 % 06/14/17 03:24 Glucose 193 mg/dL (75-100) H 06/14/17 03:24 POC Glucose 200 (70-105) H 06/15/17 12:02 Lactic Acid 1.30 mmol/L (0.7-2.0) 06/09/17 05:54 Calcium 8.0 mg/dL (8.4-10.2) L 06/14/17 03:24 Iron 9 ug/dL (49-181) L 06/09/17 05:54 TIBC 141.40 mcg/dL (250-450) L 06/09/17 05:54 % Saturation 6.36 % 06/09/17 05:54 Transferrin 101 mg/dl (180-329) L 06/09/17 05:54 Total Bilirubin 0.60 mg/dL (0.1-1.2) 06/10/17 05:47 AST 24 units/L (5-40) 06/10/17 05:47 ALT 12 units/L (7-56) 06/10/17 05:47 Alkaline Phosphatase 67 units/L (35-129) 06/10/17 05:47 Total Protein 7.3 g/dL (6.3-8.2) 06/10/17 05:47 Albumin 2.4 g/dL (3.9-5) L 06/10/17 05:47 Albumin/Globulin Ratio 0.5 % 06/10/17 05:47 Triglycerides 69 mg/dL (2-149) 06/10/17 05:47 Cholesterol 109 mg/dL (50-199) 06/10/17 05:47 LDL Cholesterol Direct 60 mg/dL (50-130) 06/10/17 05:47 HDL Cholesterol 36 mg/dL (40-59) L 06/10/17 05:47 Cholesterol/HDL Ratio 3.02 % 06/10/17 05:47 Vitamin B12 280.5 pg/mL (211-911) 06/09/17 05:54 RBC Folic Acid 867 ng/mL (>280) 06/09/17 05:54 Urine Color Yellow (Yellow) 06/08/17 15:52 Urine Turbidity Clear (Clear) 06/08/17 15:52 Urine pH 5.0 (5.0-7.0) 06/08/17 15:52 Ur Specific [place] 1.014 (1.003-1.030) 06/08/17 15:52 Urine Protein 100 mg/dl mg/dL (Negative) 06/08/17 15:52 Urine Glucose (UA) 150 mg/dL (Negative) 06/08/17 15:52 Urine Ketones Tr mg/dL (Negative) 06/08/17 15:52 Urine Blood Mod (Negative) 06/08/17 15:52 Urine Nitrite Neg (Negative) 06/08/17 15:52 Urine Bilirubin Neg (Negative) 06/08/17 15:52 Urine Urobilinogen < 2.0 mg/dL (<2.0) 06/08/17 15:52 Ur Leukocyte Esterase Neg (Negative) 06/08/17 15:52 Urine WBC (Auto) 3.0 /HPF (0.0-6.0) 06/08/17 15:52 Urine RBC (Auto) 19.0 /HPF (0.0-6.0) 06/08/17 15:52 U Epithel Cells (Auto) < 1.0 /HPF (0-13.0) 06/08/17 15:52 Urine Mucus Few /HPF 06/08/17 15:52 Vancomycin Trough 25.5 ug/mL (5.0-20.0) H 06/11/17 18:11 Blood Type B POSITIVE 06/09/17 17:25 Antibody Screen TNR 06/09/17 17:25 GABY Antibody Screen Negative 06/09/17 17:25 Crossmatch See Detail 06/09/17 17:25
--- NOTE | 2017-06-15 16:17 | Anesthesia Consultation ---
Anesthesia Consult and Med Hx Date of service: 06/15/17 - Airway Anesthetic Teeth Evaluation: Poor ROM Head & Neck: Adequate Mental/Hyoid Distance: Adequate Mallampati Class: Class II Intubation Access Assessment: Probably Good - Pre-Operative Health Status ASA Pre-Surgery Classification: ASA4 Proposed Anesthetic Plan: General, Spinal - Cardiovascular System Hx Hypertension: Yes - Central Nervous System CVA: Yes (multiple strokes, aphasia) Hx Psychiatric Problems: Yes (Altered mental status with dementia) - Gastrointestinal Hx Gastroesophageal Reflux Disease: Yes (PEG tube in place) - Endocrine Hx Renal Disease: Yes (jose) Hx Non-Insulin Dependent Diabetes: Yes - Hematic Hx Anemia: Yes (BLOOD [place] [id number]) - Additional Comments Anesthesia Medical History Comments: scheduled for AKA
[2017-06-16 03:33] LABS: Hematocrit 30.5 % (35.5-45.6); Hemoglobin 9.9 gm/dl (11.8-15.2); Mean Corpuscular HGB Conc 32 % (32-34); Mean Corpuscular Volume 74 fl (84-94); Platelet Count 306 K/mm3 (140-440); White Blood Count 9.7 K/mm3 (4.5-11.0)
[2017-06-16 03:41] LABS: Mean Corpuscular Hemoglobin 24 pg (28-32)
[2017-06-16 03:44] LABS: Anion Gap 15 mmol/L; BUN/Creatinine Ratio 38.33; Blood Urea Nitrogen 23 mg/dL (9-20); Calcium 8.6 mg/dL (8.4-10.2); Carbon Dioxide 28 mmol/L (22-30); Chloride 104.6 mmol/L (98-107); Glucose 126 mg/dL (75-100); INR 1.69 (0.87-1.13); Sodium 144 mmol/L (137-145)
[2017-06-16 05:00] LABS: Anisocytosis 1+; Basophils % (Manual) 0 % (0.0-1.8); Blastocytes % (Manual) 0 %; Hypochromasia 1+
[2017-06-16 05:01] LABS: Diff Status Complete; Platelet Estimate Consistent w Auto
[2017-06-16] MEDS ORDERED: PEPCID IV NR (07:52)
[2017-06-16] MEDS ORDERED: DILAUDID IV PRN (07:52)
--- NOTE | 2017-06-16 07:53 | Anesthesia Day of Surgery ---
Anesthesia Day of Surgery - Day of Surgery Patient Examined: Yes Patient H&P Reviewed: Yes Patient is NPO: Yes
[2017-06-16] MEDS ORDERED: NACL 0.9% 1000 ML 1,000 ML ONE (08:22)
[2017-06-16] MEDS ORDERED: DIPRIVAN 10 MG/ML IV ONE (08:23)
[2017-06-16] MEDS ORDERED: DILAUDID ONE (08:23)
[2017-06-16] MEDS ORDERED: XYLOCAINE MPF 2% ONE (08:23)
[2017-06-16] MEDS: NACL 0.9% 1000 ML 1,000 ML IV SCH (08:25)
[2017-06-16] MEDS ORDERED: SUBLIMAZE ONE (08:26)
[2017-06-16] MEDS ORDERED: AMIDATE IV ONE (08:30)
[2017-06-16] MEDS ORDERED: NACL 0.9% IR ONE (09:10)
[2017-06-16] MEDS ORDERED: ZOFRAN ONE (09:37)
--- NOTE | 2017-06-16 10:09 | Operative Report ---
Operative Report Operative Report: Date of procedure: 06/16/2017 Pre-operative diagnosis: Peripheral vascular disease with gangrene right heel, nonambulatory status, knee contraction right leg Post-operative diagnosis: Same Procedure name(s): Right above-knee amputation Surgeon: Rishi Lawrence MD Desk Director: Gerson Griffith PA-C Anesthesia: Gen. EBL: Less than 75 mL Specimen(s): Right lower leg and knee Complications: None Findings: Adequate perfusion with good muscle viability at the level of the amputation through the distal thigh Procedure: Patient in the supine position after adequate levels of general anesthesia was obtained the patient's right lower extremity was then prepped and draped using standard sterile technique. A standard fishmouth incision was made in the distal thigh and carried down through the subcutaneous tissue. The greater saphenous vein was ligated and divided. The anterior muscular elements were then divided until the periosteal tissue was identified. The lateral medial muscular elements were also divided using Bovie. Both popliteal artery and vein were individually mobilized and ligated. There was no thrombus noted in either the vessels. Posterior muscular elements were then divided and the sciatic nerve was identified and ligated proximally prior to division. Periosteal tissue was then elevated and the muscle from the posterior raphe was divided. The femur was then amputated using power saw. The edges of the bone were then smoothed using a bone rasp and the area was irrigated until all bone debris was removed. Hemostasis was excellent. The fascia was then closed using interrupted 2-0 pop-off Vicryl sutures. The skin was reapproximated using skin patricio. The incision was covered with Xeroform and a compression wrap using gauze AVD pads Kerlix and Adalid wrap. Patient was then extubated after returning the supine position to the ICU in stable condition having tolerated the procedure well. Sponge and needle counts were correct.
[2017-06-16] MEDS: LEVAQUIN 750MG/150ML 750 MG/150 ML BAG IV SCH (10:41)
--- NOTE | 2017-06-16 14:32 | Progress Note ---
Assessment and Plan Assessment and plan: Sepsis - Secondary to decubitus ulcer - Surgery is evaluating him to do amputation Right leg ulcer - S/P AKA History of CVA -Supportive care Type 2 diabetes mellitus - Accuchecks - SSI Hypertension -Continue medications Metabolic acidosis - Continue bicarbonate Immobility Hyperlipidemia Anemia -Stable after transfusion of 2 units of blood DVT prophylaxis -Lovenox Disposition Inpatient rehab. History Interval history: Patient was seen and evaluated this morning, patient is noncommunicative, status post AKA done this morning. Hospitalist Physical - Physical exam Narrative exam: Not in cardiopulmonary distress. The patient is cachectic. Vital signs as documented. Head exam is unremarkable. No scleral icterus . Neck is without jugular venous distension, thyromegaly, or carotid bruits. Lungs are clear to auscultation. Cardiac exam reveals regular rate and Rhythm. First and second heart sounds normal. No murmurs, rubs or gallops. Abdominal exam reveals normal bowel sounds, no masses, no organomegaly and no aortic enlargement. Extremities status post AKA, clean stump, no bleeding from the site. 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 - Constitutional Vitals: Temp Pulse Resp BP Pulse Ox 97.4 F L 98 H 12 149/80 100 06/16/17 12:30 06/16/17 12:30 06/16/17 12:30 06/16/17 12:30 06/16/17 12:30 General appearance: Present: no acute distress, well-nourished Results - Labs CBC & Chem 7: 06/16/17 02:56 06/16/17 02:56 Labs: Laboratory Last Values WBC 9.7 K/mm3 (4.5-11.0) 06/16/17 02:56 RBC 4.10 M/mm3 (3.65-5.03) 06/16/17 02:56 Hgb 9.9 gm/dl (11.8-15.2) L 06/16/17 02:56 Hct 30.5 % (35.5-45.6) L 06/16/17 02:56 MCV 74 fl (84-94) L 06/16/17 02:56 MCH 24 pg (28-32) L 06/16/17 02:56 MCHC 32 % (32-34) 06/16/17 02:56 RDW 23.0 % (13.2-15.2) H 06/16/17 02:56 Plt Count 306 K/mm3 (140-440) 06/16/17 02:56 Lymph % (Auto) 5.9 % (13.4-35.0) L 06/10/17 05:47 [place] % (Auto) 8.2 % (0.0-7.3) H 06/10/17 05:47 Eos % (Auto) 0.0 % (0.0-4.3) 06/10/17 05:47 Baso % (Auto) 0.4 % (0.0-1.8) 06/10/17 05:47 Lymph # 0.9 K/mm3 (1.2-5.4) L 06/10/17 05:47 [place] # 1.3 K/mm3 (0.0-0.8) H 06/10/17 05:47 Eos # 0.0 K/mm3 (0.0-0.4) 06/10/17 05:47 Baso # 0.1 K/mm3 (0.0-0.1) 06/10/17 05:47 Add Manual Diff Complete 06/16/17 02:56 Total Counted 100 06/16/17 02:56 Seg Neutrophils % 85.5 % (40.0-70.0) H 06/10/17 05:47 Seg Neuts % (Manual) 76.0 % (40.0-70.0) H 06/16/17 02:56 Band Neutrophils % 0 % 06/16/17 02:56 Lymphocytes % (Manual) 14.0 % (13.4-35.0) 06/16/17 02:56 Reactive Lymphs % (Man) 0 % 06/16/17 02:56 Monocytes % (Manual) 9.0 % (0.0-7.3) H 06/16/17 02:56 Eosinophils % (Manual) 1.0 % (0.0-4.3) 06/16/17 02:56 Basophils % (Manual) 0 % (0.0-1.8) 06/16/17 02:56 Metamyelocytes % 0 % 06/16/17 02:56 Myelocytes % 0 % 06/16/17 02:56 Promyelocytes % 0 % 06/16/17 02:56 Blast Cells % 0 % 06/16/17 02:56 Nucleated RBC % Not Reportable 06/16/17 02:56 Seg Neutrophils # 13.6 K/mm3 (1.8-7.7) H 06/10/17 05:47 Seg Neutrophils # Man 7.4 K/mm3 (1.8-7.7) 06/16/17 02:56 Band Neutrophils # 0.0 K/mm3 06/16/17 02:56 Lymphocytes # (Manual) 1.4 K/mm3 (1.2-5.4) 06/16/17 02:56 Abs React Lymphs (Man) 0.0 K/mm3 06/16/17 02:56 Monocytes # (Manual) 0.9 K/mm3 (0.0-0.8) H 06/16/17 02:56 Eosinophils # (Manual) 0.1 K/mm3 (0.0-0.4) 06/16/17 02:56 Basophils # (Manual) 0.0 K/mm3 (0.0-0.1) 06/16/17 02:56 Metamyelocytes # 0.0 K/mm3 06/16/17 02:56 Myelocytes # 0.0 K/mm3 06/16/17 02:56 Promyelocytes # 0.0 K/mm3 06/16/17 02:56 Blast Cells # 0.0 K/mm3 06/16/17 02:56 WBC Morphology Not Reportable 06/16/17 02:56 Hypersegmented Neuts Not Reportable 06/16/17 02:56 Hyposegmented Neuts Not Reportable 06/16/17 02:56 Hypogranular Neuts Not Reportable 06/16/17 02:56 Smudge Cells Not Reportable 06/16/17 02:56 Toxic Granulation Not Reportable 06/16/17 02:56 Toxic Vacuolation Not Reportable 06/16/17 02:56 Dohle Bodies Not Reportable 06/16/17 02:56 Pelger-Huet Anomaly Not Reportable 06/16/17 02:56 Crotney Rods Not Reportable 06/16/17 02:56 Platelet Estimate Consistent w auto 06/16/17 02:56 Clumped Platelets Not Reportable 06/16/17 02:56 Plt Clumps, EDTA Not Reportable 06/16/17 02:56 Large Platelets Not Reportable 06/16/17 02:56 Giant Platelets Not Reportable 06/16/17 02:56 Platelet Satelliting Not Reportable 06/16/17 02:56 Plt Morphology Comment Not Reportable 06/16/17 02:56 RBC Morphology Not Reportable 06/16/17 02:56 Dimorphic RBCs Not Reportable 06/16/17 02:56 Polychromasia Not Reportable 06/16/17 02:56 Hypochromasia 1+ 06/16/17 02:56 Poikilocytosis Not Reportable 06/16/17 02:56 Anisocytosis 1+ 06/16/17 02:56 Microcytosis Not Reportable 06/16/17 02:56 Macrocytosis Not Reportable 06/16/17 02:56 Spherocytes Not Reportable 06/16/17 02:56 Pappenheimer Bodies Not Reportable 06/16/17 02:56 Sickle Cells Not Reportable 06/16/17 02:56 Target Cells Not Reportable 06/16/17 02:56 Tear Drop Cells Not Reportable 06/16/17 02:56 Ovalocytes Not Reportable 06/16/17 02:56 Helmet Cells Not Reportable 06/16/17 02:56 [place] Bodies Not Reportable 06/16/17 02:56 [place] Rings Not Reportable 06/16/17 02:56 [place] Cells Not Reportable 06/16/17 02:56 Bite Cells Not Reportable 06/16/17 02:56 Crenated Cell Not Reportable 06/16/17 02:56 Elliptocytes Not Reportable 06/16/17 02:56 Acanthocytes (Spur) Not Reportable 06/16/17 02:56 Rouleaux Not Reportable 06/16/17 02:56 Hemoglobin C Crystals Not Reportable 06/16/17 02:56 Schistocytes Not Reportable 06/16/17 02:56 Malaria parasites Not Reportable 06/16/17 02:56 Ritchie Bodies Not Reportable 06/16/17 02:56 Hem Pathologist Commnt No 06/16/17 02:56 PT 19.9 Sec. (12.2-14.9) H 06/16/17 02:56 INR 1.69 (0.87-1.13) H 06/16/17 02:56 VBG pH 7.383 (7.320-7.420) 06/08/17 15:47 Sodium 144 mmol/L (137-145) 06/16/17 02:56 Potassium 4.0 mmol/L (3.6-5.0) D 06/16/17 02:56 Chloride 104.6 mmol/L (98-107) 06/16/17 02:56 Carbon Dioxide 28 mmol/L (22-30) 06/16/17 02:56 Anion Gap 15 mmol/L 06/16/17 02:56 BUN 23 mg/dL (9-20) H 06/16/17 02:56 Creatinine 0.6 mg/dL (0.8-1.5) L 06/16/17 02:56 Estimated GFR > 60 ml/min 06/16/17 02:56 BUN/Creatinine Ratio 38.33 % 06/16/17 02:56 Glucose 126 mg/dL (75-100) H 06/16/17 02:56 POC Glucose 92 (70-105) 06/16/17 10:09 Lactic Acid 1.30 mmol/L (0.7-2.0) 06/09/17 05:54 Calcium 8.6 mg/dL (8.4-10.2) 06/16/17 02:56 Iron 9 ug/dL (49-181) L 06/09/17 05:54 TIBC 141.40 mcg/dL (250-450) L 06/09/17 05:54 % Saturation 6.36 % 06/09/17 05:54 Transferrin 101 mg/dl (180-329) L 06/09/17 05:54 Total Bilirubin 0.60 mg/dL (0.1-1.2) 06/10/17 05:47 AST 24 units/L (5-40) 06/10/17 05:47 ALT 12 units/L (7-56) 06/10/17 05:47 Alkaline Phosphatase 67 units/L (35-129) 06/10/17 05:47 Total Protein 7.3 g/dL (6.3-8.2) 06/10/17 05:47 Albumin 2.4 g/dL (3.9-5) L 06/10/17 05:47 Albumin/Globulin Ratio 0.5 % 06/10/17 05:47 Triglycerides 69 mg/dL (2-149) 06/10/17 05:47 Cholesterol 109 mg/dL (50-199) 06/10/17 05:47 LDL Cholesterol Direct 60 mg/dL (50-130) 06/10/17 05:47 HDL Cholesterol 36 mg/dL (40-59) L 06/10/17 05:47 Cholesterol/HDL Ratio 3.02 % 06/10/17 05:47 Vitamin B12 280.5 pg/mL (211-911) 06/09/17 05:54 RBC Folic Acid 867 ng/mL (>280) 06/09/17 05:54 Urine Color Yellow (Yellow) 06/08/17 15:52 Urine Turbidity Clear (Clear) 06/08/17 15:52 Urine pH 5.0 (5.0-7.0) 06/08/17 15:52 Ur Specific [place] 1.014 (1.003-1.030) 06/08/17 15:52 Urine Protein 100 mg/dl mg/dL (Negative) 06/08/17 15:52 Urine Glucose (UA) 150 mg/dL (Negative) 06/08/17 15:52 Urine Ketones Tr mg/dL (Negative) 06/08/17 15:52 Urine Blood Mod (Negative) 06/08/17 15:52 Urine Nitrite Neg (Negative) 06/08/17 15:52 Urine Bilirubin Neg (Negative) 06/08/17 15:52 Urine Urobilinogen < 2.0 mg/dL (<2.0) 06/08/17 15:52 Ur Leukocyte Esterase Neg (Negative) 06/08/17 15:52 Urine WBC (Auto) 3.0 /HPF (0.0-6.0) 06/08/17 15:52 Urine RBC (Auto) 19.0 /HPF (0.0-6.0) 06/08/17 15:52 U Epithel Cells (Auto) < 1.0 /HPF (0-13.0) 06/08/17 15:52 Urine Mucus Few /HPF 06/08/17 15:52 Vancomycin Trough 25.5 ug/mL (5.0-20.0) H 06/11/17 18:11 Blood Type B POSITIVE 06/16/17 08:00 Antibody Screen TNR 06/16/17 08:00 GABY Antibody Screen Negative 06/16/17 08:00 Crossmatch See Detail 06/09/17 17:25
[2017-06-17 04:10] LABS: Basophils % (Auto) 0.1 % (0.0-1.8); Hematocrit 20.7 % (35.5-45.6); Hemoglobin 6.7 gm/dl (11.8-15.2); Mean Corpuscular HGB Conc 32 % (32-34); Mean Corpuscular Volume 75 fl (84-94); Platelet Count 262 K/mm3 (140-440); Red Blood Count 2.78 M/mm3 (3.65-5.03); White Blood Count 10.8 K/mm3 (4.5-11.0)
[2017-06-17 04:13] LABS: Mean Corpuscular Hemoglobin 24 pg (28-32); Red Cell Distribution Width 23.2 % (13.2-15.2)
[2017-06-17 04:17] LABS: BUN/Creatinine Ratio 28.57; Blood Urea Nitrogen 20 mg/dL (9-20); Calcium 6.5 mg/dL (8.4-10.2); Carbon Dioxide 21 mmol/L (22-30); Chloride 112.3 mmol/L (98-107); Glucose 201 mg/dL (75-100); Potassium 3.2 mmol/L (3.6-5.0); Sodium 147 mmol/L (137-145)
[2017-06-17 04:18] LABS: Anion Gap 17 mmol/L
[2017-06-17] MEDS: NORVASC PO SCH ×2 (06:34→10:56)
[2017-06-17] MEDS ORDERED: POTASSIUM CHLORIDE FEEDTUBE ONE (07:49)
[2017-06-17] MEDS ORDERED: NACL 0.9% 500 ML 500 ML IV ONE (07:50)
--- NOTE | 2017-06-17 07:52 | Progress Note ---
Assessment and Plan Assessment and plan: --The media significant drop in H&H from 9.9-6.7 And cross transfuse 2 units of PRBC and closely monitor H&H --Hypokalemia; replenish per protocol and monitor levels --Status post right AKA The following, continue postoperative care --Hypertension; moderate control Continue current antihypertensives and when necessary medications --Type 2 diabetes mellitus; Accu-Chek sliding scale coverage and ADA diet and insulin as needed --History of CVA with residual weakness Supportive care --Status post PEG; continue PEG feeds per protocol , PEG care --DVT prophylaxis; defer to surgical team --Planning. Case management Closely monitor the patient and adjust management as needed History Interval history: Patient seen and evaluated medical records reviewed The patient had right BKA yesterday, no new events reported by the nursing staff Patient is minimally communicative, not in acute distress, vital signs reviewed Hospitalist Physical - Constitutional Vitals: Temp Pulse Resp BP Pulse Ox 98.6 F 111 H 18 127/71 95 06/17/17 03:05 06/17/17 03:05 06/17/17 04:46 06/17/17 03:05 06/17/17 07:18 General appearance: Present: no acute distress, well-nourished - EENT Eyes: Present: PERRL, EOM intact - Neck Neck: Present: supple, normal ROM - Respiratory Respiratory effort: normal Respiratory: bilateral: diminished, negative: rales, rhonchi, wheezing - Cardiovascular Rhythm: regular Heart Sounds: Present: S1 & S2 - Extremities Extremities: no ischemia, pulses intact, pulses symmetrical Extremity abnormal: edema Peripheral Pulses: within normal limits - Abdominal General gastrointestinal: soft, non-tender, non-distended, normal bowel sounds - Integumentary Integumentary: Present: clear, warm - Psychiatric Psychiatric: appropriate mood/affect, cooperative - Neurologic Neurologic: CNII-XII intact, moves all extremities Results - Labs CBC & Chem 7: 06/17/17 03:27 06/17/17 03:27 Labs: Laboratory Last Values WBC 10.8 K/mm3 (4.5-11.0) 06/17/17 03:27 RBC 2.78 M/mm3 (3.65-5.03) L 06/17/17 03:27 Hgb 6.7 gm/dl (11.8-15.2) L D 06/17/17 03:27 Hct 20.7 % (35.5-45.6) L D 06/17/17 03:27 MCV 75 fl (84-94) L 06/17/17 03:27 MCH 24 pg (28-32) L 06/17/17 03:27 MCHC 32 % (32-34) 06/17/17 03:27 RDW 23.2 % (13.2-15.2) H 06/17/17 03:27 Plt Count 262 K/mm3 (140-440) 06/17/17 03:27 Lymph % (Auto) 8.7 % (13.4-35.0) L 06/17/17 03:27 [place] % (Auto) 8.1 % (0.0-7.3) H 06/17/17 03:27 Eos % (Auto) 0.0 % (0.0-4.3) 06/17/17 03:27 Baso % (Auto) 0.1 % (0.0-1.8) 06/17/17 03:27 Lymph # 0.9 K/mm3 (1.2-5.4) L 06/17/17 03:27 [place] # 0.9 K/mm3 (0.0-0.8) H 06/17/17 03:27 Eos # 0.0 K/mm3 (0.0-0.4) 06/17/17 03:27 Baso # 0.0 K/mm3 (0.0-0.1) 06/17/17 03:27 Add Manual Diff Complete 06/16/17 02:56 Total Counted 100 06/16/17 02:56 Seg Neutrophils % 83.1 % (40.0-70.0) H 06/17/17 03:27 Seg Neuts % (Manual) 76.0 % (40.0-70.0) H 06/16/17 02:56 Band Neutrophils % 0 % 06/16/17 02:56 Lymphocytes % (Manual) 14.0 % (13.4-35.0) 06/16/17 02:56 Reactive Lymphs % (Man) 0 % 06/16/17 02:56 Monocytes % (Manual) 9.0 % (0.0-7.3) H 06/16/17 02:56 Eosinophils % (Manual) 1.0 % (0.0-4.3) 06/16/17 02:56 Basophils % (Manual) 0 % (0.0-1.8) 06/16/17 02:56 Metamyelocytes % 0 % 06/16/17 02:56 Myelocytes % 0 % 06/16/17 02:56 Promyelocytes % 0 % 06/16/17 02:56 Blast Cells % 0 % 06/16/17 02:56 Nucleated RBC % Not Reportable 06/16/17 02:56 Seg Neutrophils # 9.0 K/mm3 (1.8-7.7) H 06/17/17 03:27 Seg Neutrophils # Man 7.4 K/mm3 (1.8-7.7) 06/16/17 02:56 Band Neutrophils # 0.0 K/mm3 06/16/17 02:56 Lymphocytes # (Manual) 1.4 K/mm3 (1.2-5.4) 06/16/17 02:56 Abs React Lymphs (Man) 0.0 K/mm3 06/16/17 02:56 Monocytes # (Manual) 0.9 K/mm3 (0.0-0.8) H 06/16/17 02:56 Eosinophils # (Manual) 0.1 K/mm3 (0.0-0.4) 06/16/17 02:56 Basophils # (Manual) 0.0 K/mm3 (0.0-0.1) 06/16/17 02:56 Metamyelocytes # 0.0 K/mm3 06/16/17 02:56 Myelocytes # 0.0 K/mm3 06/16/17 02:56 Promyelocytes # 0.0 K/mm3 06/16/17 02:56 Blast Cells # 0.0 K/mm3 06/16/17 02:56 WBC Morphology Not Reportable 06/16/17 02:56 Hypersegmented Neuts Not Reportable 06/16/17 02:56 Hyposegmented Neuts Not Reportable 06/16/17 02:56 Hypogranular Neuts Not Reportable 06/16/17 02:56 Smudge Cells Not Reportable 06/16/17 02:56 Toxic Granulation Not Reportable 06/16/17 02:56 Toxic Vacuolation Not Reportable 06/16/17 02:56 Dohle Bodies Not Reportable 06/16/17 02:56 Pelger-Huet Anomaly Not Reportable 06/16/17 02:56 [place] Rods Not Reportable 06/16/17 02:56 Platelet Estimate Consistent w auto 06/16/17 02:56 Clumped Platelets Not Reportable 06/16/17 02:56 Plt Clumps, EDTA Not Reportable 06/16/17 02:56 Large Platelets Not Reportable 06/16/17 02:56 Giant Platelets Not Reportable 06/16/17 02:56 Platelet Satelliting Not Reportable 06/16/17 02:56 Plt Morphology Comment Not Reportable 06/16/17 02:56 RBC Morphology Not Reportable 06/16/17 02:56 Dimorphic RBCs Not Reportable 06/16/17 02:56 Polychromasia Not Reportable 06/16/17 02:56 Hypochromasia 1+ 06/16/17 02:56 Poikilocytosis Not Reportable 06/16/17 02:56 Anisocytosis 1+ 06/16/17 02:56 Microcytosis Not Reportable 06/16/17 02:56 Macrocytosis Not Reportable 06/16/17 02:56 Spherocytes Not Reportable 06/16/17 02:56 Pappenheimer Bodies Not Reportable 06/16/17 02:56 Sickle Cells Not Reportable 06/16/17 02:56 Target Cells Not Reportable 06/16/17 02:56 Tear Drop Cells Not Reportable 06/16/17 02:56 Ovalocytes Not Reportable 06/16/17 02:56 Helmet Cells Not Reportable 06/16/17 02:56 [place] Bodies Not Reportable 06/16/17 02:56 [place] Rings Not Reportable 06/16/17 02:56 [place] Cells Not Reportable 06/16/17 02:56 Bite Cells Not Reportable 06/16/17 02:56 Crenated Cell Not Reportable 06/16/17 02:56 Elliptocytes Not Reportable 06/16/17 02:56 Acanthocytes (Spur) Not Reportable 06/16/17 02:56 Rouleaux Not Reportable 06/16/17 02:56 Hemoglobin C Crystals Not Reportable 06/16/17 02:56 Schistocytes Not Reportable 06/16/17 02:56 Malaria parasites Not Reportable 06/16/17 02:56 Ritchie Bodies Not Reportable 06/16/17 02:56 Hem Pathologist Commnt No 06/16/17 02:56 PT 19.9 Sec. (12.2-14.9) H 06/16/17 02:56 INR 1.69 (0.87-1.13) H 06/16/17 02:56 VBG pH 7.383 (7.320-7.420) 06/08/17 15:47 Sodium 147 mmol/L (137-145) H 06/17/17 03:27 Potassium 3.2 mmol/L (3.6-5.0) L 06/17/17 03:27 Chloride 112.3 mmol/L (98-107) H 06/17/17 03:27 Carbon Dioxide 21 mmol/L (22-30) L D 06/17/17 03:27 Anion Gap 17 mmol/L 06/17/17 03:27 BUN 20 mg/dL (9-20) 06/17/17 03:27 Creatinine 0.7 mg/dL (0.8-1.5) L 06/17/17 03:27 Estimated GFR > 60 ml/min 06/17/17 03:27 BUN/Creatinine Ratio 28.57 % 06/17/17 03:27 Glucose 201 mg/dL (75-100) H 06/17/17 03:27 POC Glucose 92 (70-105) 06/16/17 10:09 Lactic Acid 1.30 mmol/L (0.7-2.0) 06/09/17 05:54 Calcium 6.5 mg/dL (8.4-10.2) L D 06/17/17 03:27 Iron 9 ug/dL (49-181) L 06/09/17 05:54 TIBC 141.40 mcg/dL (250-450) L 06/09/17 05:54 % Saturation 6.36 % 06/09/17 05:54 Transferrin 101 mg/dl (180-329) L 06/09/17 05:54 Total Bilirubin 0.60 mg/dL (0.1-1.2) 06/10/17 05:47 AST 24 units/L (5-40) 06/10/17 05:47 ALT 12 units/L (7-56) 06/10/17 05:47 Alkaline Phosphatase 67 units/L (35-129) 06/10/17 05:47 Total Protein 7.3 g/dL (6.3-8.2) 06/10/17 05:47 Albumin 2.4 g/dL (3.9-5) L 06/10/17 05:47 Albumin/Globulin Ratio 0.5 % 06/10/17 05:47 Triglycerides 69 mg/dL (2-149) 06/10/17 05:47 Cholesterol 109 mg/dL (50-199) 06/10/17 05:47 LDL Cholesterol Direct 60 mg/dL (50-130) 06/10/17 05:47 HDL Cholesterol 36 mg/dL (40-59) L 06/10/17 05:47 Cholesterol/HDL Ratio 3.02 % 06/10/17 05:47 Vitamin B12 280.5 pg/mL (211-911) 06/09/17 05:54 RBC Folic Acid 867 ng/mL (>280) 06/09/17 05:54 Urine Color Yellow (Yellow) 06/08/17 15:52 Urine Turbidity Clear (Clear) 06/08/17 15:52 Urine pH 5.0 (5.0-7.0) 06/08/17 15:52 Ur Specific [place] 1.014 (1.003-1.030) 06/08/17 15:52 Urine Protein 100 mg/dl mg/dL (Negative) 06/08/17 15:52 Urine Glucose (UA) 150 mg/dL (Negative) 06/08/17 15:52 Urine Ketones Tr mg/dL (Negative) 06/08/17 15:52 Urine Blood Mod (Negative) 06/08/17 15:52 Urine Nitrite Neg (Negative) 06/08/17 15:52 Urine Bilirubin Neg (Negative) 06/08/17 15:52 Urine Urobilinogen < 2.0 mg/dL (<2.0) 06/08/17 15:52 Ur Leukocyte Esterase Neg (Negative) 06/08/17 15:52 Urine WBC (Auto) 3.0 /HPF (0.0-6.0) 06/08/17 15:52 Urine RBC (Auto) 19.0 /HPF (0.0-6.0) 06/08/17 15:52 U Epithel Cells (Auto) < 1.0 /HPF (0-13.0) 06/08/17 15:52 Urine Mucus Few /HPF 06/08/17 15:52 Vancomycin Trough 25.5 ug/mL (5.0-20.0) H 06/11/17 18:11 Blood Type B POSITIVE 06/16/17 08:00 Antibody Screen TNR 06/16/17 08:00 GABY Antibody Screen Negative 06/16/17 08:00 Crossmatch See Detail 06/09/17 17:25
--- NOTE | 2017-06-17 10:15 | Progress Note ---
Assessment and Plan 71-year-old severely debilitated patient status post strokes, contractures, who is nonverbal. Discussed with nursing who reports that his mental status is unchanged. Status post right above-knee amputation for gangrene. Dressing clean dry and intact. We will evaluate wound site in the next 24-48 hours. H & H declined since surgery. Patient being transfused 2 units packed red blood cells which is appropriate. Subjective Date of service: 06/17/17 Interval history: Status post right above-knee amputation. Patient nonverbal. No bleeding from wound site. Adalid wrap in place. H&H decreased since surgery which is expected. 2 units packed red blood cells ordered by hospitalist which is appropriate. Objective - Constitutional Vitals: Vital Signs - 12hr 06/16/17 06/17/17 06/17/17 23:55 03:05 04:46 Temperature 97.3 F L 98.6 F Pulse Rate [ 111 H Apical] Pulse Rate [ 125 H 111 H From Monitor] Respiratory 20 20 18 Rate Blood Pressure 125/72 127/71 [Right Arm] O2 Sat by Pulse 100 Oximetry 06/17/17 06/17/17 07:00 07:18 Temperature 97.4 F L Pulse Rate [ 120 H Apical] Pulse Rate [ 120 H From Monitor] Respiratory 18 Rate Blood Pressure 128/69 [Right Arm] O2 Sat by Pulse 98 95 Oximetry General appearance: Present: no acute distress, other (nonverbal) - Respiratory Respiratory effort: normal Extremities: normal temperature, normal color Extremity abnormal: other (contracted bilateral lower extremities status post right above-knee amputation, Adalid wrap dry and intact) - Psychiatric Psychiatric: other (nonverbal) - Labs CBC & Chem 7: 06/17/17 03:27 06/17/17 03:27 Labs: Abnormal lab results 06/16/17 06/17/17 06/17/17 Range/Units 08:00 03:27 03:27 RBC 2.78 L (3.65-5.03) M/mm3 Hgb 6.7 L D (11.8-15.2) gm/dl Hct 20.7 L D (35.5-45.6) % MCV 75 L (84-94) fl MCH 24 L (28-32) pg RDW 23.2 H (13.2-15.2) % Lymph % (Auto) 8.7 L (13.4-35.0) % [place] % (Auto) 8.1 H (0.0-7.3) % Lymph # 0.9 L (1.2-5.4) K/mm3 [place] # 0.9 H (0.0-0.8) K/mm3 Seg Neutrophils % 83.1 H (40.0-70.0) % Seg Neutrophils # 9.0 H (1.8-7.7) K/mm3 Sodium 147 H (137-145) mmol/L Potassium 3.2 L (3.6-5.0) mmol/L Chloride 112.3 H (98-107) mmol/L Carbon Dioxide 21 L D (22-30) mmol/L Creatinine 0.7 L (0.8-1.5) mg/dL Glucose 201 H (75-100) mg/dL Calcium 6.5 L D (8.4-10.2) mg/dL Crossmatch See Detail
--- NOTE | 2017-06-17 11:14 | Progress Note ---
Subjective Date of service: 06/16/17 Interval history: patient is non-verbal. talked to nurse and she stated that he did not have any anesthesia complications. HGB found to be 6.5. Will be given blood transfusion today. Objective - Constitutional Vitals: Vital Signs - 12hr 06/16/17 06/17/17 06/17/17 23:55 03:05 04:46 Temperature 97.3 F L 98.6 F Pulse Rate [ 111 H Apical] Pulse Rate [ 125 H 111 H From Monitor] Respiratory 20 20 18 Rate Blood Pressure 125/72 127/71 [Right Arm] O2 Sat by Pulse 100 Oximetry 06/17/17 06/17/17 07:00 07:18 Temperature 97.4 F L Pulse Rate [ 120 H Apical] Pulse Rate [ 120 H From Monitor] Respiratory 18 Rate Blood Pressure 128/69 [Right Arm] O2 Sat by Pulse 98 95 Oximetry - Labs CBC & Chem 7: 06/17/17 03:27 06/17/17 03:27 Labs: Abnormal lab results 06/16/17 06/17/17 06/17/17 Range/Units 08:00 03:27 03:27 RBC 2.78 L (3.65-5.03) M/mm3 Hgb 6.7 L D (11.8-15.2) gm/dl Hct 20.7 L D (35.5-45.6) % MCV 75 L (84-94) fl MCH 24 L (28-32) pg RDW 23.2 H (13.2-15.2) % Lymph % (Auto) 8.7 L (13.4-35.0) % Ray % (Auto) 8.1 H (0.0-7.3) % Lymph # 0.9 L (1.2-5.4) K/mm3 Ray # 0.9 H (0.0-0.8) K/mm3 Seg Neutrophils % 83.1 H (40.0-70.0) % Seg Neutrophils # 9.0 H (1.8-7.7) K/mm3 Sodium 147 H (137-145) mmol/L Potassium 3.2 L (3.6-5.0) mmol/L Chloride 112.3 H (98-107) mmol/L Carbon Dioxide 21 L D (22-30) mmol/L Creatinine 0.7 L (0.8-1.5) mg/dL Glucose 201 H (75-100) mg/dL Calcium 6.5 L D (8.4-10.2) mg/dL Crossmatch See Detail
[2017-06-17] MEDS: LEVAQUIN 750MG/150ML 750 MG/150 ML BAG IV SCH (11:29)
[2017-06-17] MEDS: DILAUDID IV PRN ×2 (13:40→23:55)
[2017-06-17] MEDS ORDERED: TYLENOL FEEDTUBE PRN (15:53)
[2017-06-17] MEDS ORDERED: NACL 0.9% 500 ML 500 ML ONE (16:46)
[2017-06-18 04:40] LABS: Hematocrit 35.2 % (35.5-45.6); Mean Corpuscular HGB Conc 31 % (32-34); Mean Corpuscular Volume 82 fl (84-94); Platelet Count 259 K/mm3 (140-440); Red Blood Count 4.29 M/mm3 (3.65-5.03); White Blood Count 13.8 K/mm3 (4.5-11.0)
[2017-06-18 04:43] LABS: Mean Corpuscular Hemoglobin 26 pg (28-32); Red Cell Distribution Width 23.2 % (13.2-15.2)
[2017-06-18 05:00] LABS: Anion Gap 16 mmol/L; Blood Urea Nitrogen 24 mg/dL (9-20); Carbon Dioxide 23 mmol/L (22-30); Chloride 112.1 mmol/L (98-107); Glucose 221 mg/dL (75-100); Potassium 3.8 mmol/L (3.6-5.0); Sodium 147 mmol/L (137-145)
[2017-06-18 05:31] LABS: Anisocytosis 2+; Basophils % (Manual) 0 % (0.0-1.8); Blastocytes % (Manual) 0 %; Diff Status Complete; Hypochromasia 1+; Large Platelets Few; Platelet Estimate Appe; Smudge Cells Few
[2017-06-18 05:32] LABS: Polychromasia Rare; Target Cells Few
[2017-06-18] MEDS: NACL 0.9% 1000 ML 1,000 ML IV SCH (06:34)
[2017-06-18] MEDS: NORVASC PO SCH (09:38)
[2017-06-18] MEDS: LEVAQUIN 750MG/150ML 750 MG/150 ML BAG IV SCH (09:39)
--- NOTE | 2017-06-18 14:00 | Event Note ---
Date: 06/18/17 Patient seen and examined. Dressings were taken down. The staple line is intact, clean, and dry. There is no evidence of wound breakdown. Hemoglobin responded well to transfusion, going from 6.7 to 11. He is okay for discharge back to a nursing facility from a vascular surgery standpoint, with regards to his right above-knee amputation.
--- NOTE | 2017-06-18 14:48 | Discharge Summary ---
Providers - Providers Date of Admission: 06/08/17 16:57 Date of discharge: 06/18/17 Attending physician: RICKY HOPKINS 06/08/17 21:42 Consult to Dietitian/Nutrition [CONS] Routine Physician Instructions: supplements/Malnutrition Reason For Exam: Reason for Consult: Write/Manage Tube Feeding Consult to Wound/ET Nurse [CONS] Routine Reason For Exam: wound eval 06/09/17 13:05 Consult to Physician [CONS] Routine Consulting Provider: TERESA STEEL Reason For Exam: woundebridement Place consult to:: yes Notified:: YES Phone number called:: yes 06/09/17 17:04 Occupational Therapy Evaluate and Treat [CONS] Routine Comment: Reason For Exam: debility Physical Therapy Evaluation and Treat [CONS] Routine Comment: Reason For Exam: debility/Imboile 06/10/17 13:49 Consult to Dietitian/Nutrition [CONS] Routine Physician Instructions: Reason For Exam: Reason for Consult: Write/Manage Tube Feeding 06/13/17 06:00 Consult to Dietitian/Nutrition [CONS] Routine Physician Instructions: Reason For Exam: Pt needs order for feeding/flush Reason for Consult: Write/Manage Tube Feeding 06/13/17 11:56 Consult to Case Management [CONS] Stat Services Needed at Discharge: Other Notified:: [place] Phone number called:: [phone] Was contact made?: Yes If yes, spoke with:: [place] Time called:: 12:01 Additional Physician Instructions: Make an appointment at the wound care clinic for the first Tuesday or Tuesday after discharge. 06/14/17 11:15 Consult to Physician [CONS] Routine Consulting Provider: CR GREENWOOD Reason For Exam: lower ext ulcer-poor healing wound poss ampuatatio Place consult to:: office Notified:: yes Phone number called:: [phone] If yes, spoke with:: mary Time called:: 13:20 Comment:: samantha 06/16/17 Consult to Case Management [CONS] Routine Services Needed at Discharge: Other Notified:: yes If yes, spoke with:: [place] Comment:: SNF eval Primary care physician: [employer]PERATOR Hospitalization Condition: Fair Disposition: DC/[place]-03 [facility]F [facility] Time spent for discharge: 32 min Core Measure Documentation - Palliative Care Palliative Care/ Comfort Measures: Not Applicable - Core Measures Any of the following diagnoses?: none Exam - Constitutional Vitals: Temp Pulse Resp BP Pulse Ox 98.4 F 115 H 19 134/68 95 06/18/17 09:11 06/18/17 09:38 06/18/17 09:11 06/18/17 09:38 06/18/17 10:00 General appearance: Present: no acute distress, well-nourished - EENT Eyes: Present: PERRL, EOM intact - Neck Neck: Present: supple - Respiratory Respiratory effort: normal Respiratory: bilateral: diminished, negative: rales, rhonchi, wheezing - Cardiovascular Rhythm: regular Heart Sounds: Present: S1 & S2 - Abdominal General gastrointestinal: Present: soft, non-tender, non-distended, normal bowel sounds - Integumentary Integumentary: Present: clear, warm - Musculoskeletal Musculoskeletal: strength equal bilaterally - Psychiatric Psychiatric: appropriate mood/affect, cooperative - Neurologic Neurologic: CNII-XII intact, moves all extremities Plan Activity: advance as tolerated Diet: other (PEG feeds per protocol) Special Instructions: physical therapy Follow up with: PRIMARY RASHARD, [Primary Care Provider] - 3-5 Days TERESA STEEL MD [Staff Physician] - 7 Days NADEGE BARTON MD [Staff Physician] - 7 Days Prescriptions: Ciprofloxacin HCl [Ciprofloxacin TAB] 250 mg PO BID #14 tablet Clindamycin [Clindamycin CAP] 450 mg PO Q8HR #21 capsule
[2017-06-18] MEDS: DILAUDID IV PRN (16:53)
[2017-06-18 20:27] VITALS: BP 148/75
== END 2017-06-18 21:06 | DRG 853 ==
LOC: ED 15:32 → 4A 16:57 → CC2 06-12 13:53 → 2B-SURG 06-16 10:17
PROVIDERS: ADMIT Internal Medicine; ATTEND Internal Medicine
PROC: 30233N1 Transfusion of Nonautologous Red Blood Cells into Peripheral Vein, Percutaneous Approach (ICD-10-PCS; 2017-06-09)
PROC: 0QBL0ZZ Excision of Right Tarsal, Open Approach (ICD-10-PCS; 2017-06-12)
PROC: 0KBF0ZZ Excision of Right Trunk Muscle, Open Approach (ICD-10-PCS; 2017-06-12)
PROC: 0Y6C0Z3 Detachment at Right Upper Leg, Low, Open Approach (ICD-10-PCS; principal; 2017-06-16)
DX: A41.9 Sepsis, unspecified organism (principal); G92 Toxic encephalopathy; L89.614 Pressure ulcer of right heel, stage 4; L89.213 Pressure ulcer of right hip, stage 3; E46 Unspecified protein-calorie malnutrition; I70.261 Atherosclerosis of native arteries of extremities with gangrene, right leg; E78.5 Hyperlipidemia, unspecified; E87.5 Hyperkalemia; K21.9 Gastro-esophageal reflux disease without esophagitis; F03.90 Unspecified dementia, unspecified severity, without behavioral disturbance, psychotic disturbance, mood disturbance, and anxiety; E86.0 Dehydration; E11.621 Type 2 diabetes mellitus with foot ulcer; E11.51 Type 2 diabetes mellitus with diabetic peripheral angiopathy without gangrene; D64.9 Anemia, unspecified; Z79.82 Long term (current) use of aspirin; Z86.73 Personal history of transient ischemic attack (TIA), and cerebral infarction without residual deficits; Z79.899 Other long term (current) drug therapy
CPT/HCPCS: 36415; 70450; 71010; 80048; 80053; 80061; 80202; 81001; 82140; 82607; 82747; 82805; 82962; 83550; 83735; 84295; 85007; 85025; 85027; 85610; 86850; 86900; 86901; 86920; 87040; 87075; 87076; 87086; 87116; 87186; 88307; 88311; 93005; 93010; 96361; 96365; 99291; G8987-GO; G8988-GO; G8989-GO; J0610; J1170; J1644; J1815; J1956; J2405; J2543; J2704; J3010; J3370; J3480; J7030; J7040; J7050; P9016